=== PATIENT | male | born 1950 | race Caucasian/White ===

== ENCOUNTER 2016-10-29 13:56 | Inpatient (IN) | payer MEDICARE, OTHER ==
[~2016-10-29] VITALS: Ht 172.7 cm; Wt 115.5 kg
--- OUTSIDE RECORDS SUMMARY | 2016-10-29 13:50 | XMS REPORT | Continuity of Care Document ---
Author Author [facility] Organization [facility] Address Unknown Phone Unavailable Care Team Providers Care Bean Sprout Grower Name Role Phone Elijah Marks MD PCP [phone] Insurance Providers Payer Name Policy Number Subscriber Name Relationship Medicare A And B [id number] Epi Goodwingeorge Elizabeth 18 Self / Same As Patient Other1 [id number] BuddyChito Elizabeth 18 Self / Same As Patient Chief Complaint and Reason for Visit Chief Complaint Skin Condition Reason for Visit [id number] Allergic contact dermatitis Problems Medical Problems Problem Onset Date Status Poison crissy dermatitis Unknown Active Allergic contact dermatitis Unknown Active Medications Medication Dose Route Sig Days/Qty Instructions Order Date Discontinued Date Status Prednisone 10 Mg ORAL As Directed 48 Qty Take this medication following this schedule: Six (6) tablets by mouth daily x 2 days, followed by Five (5) tablets by mouth daily x 2 days, followed by Four (4) tablets by mouth daily x 2 days, followed by Three (3) tablets by mouth daily x 1 days, followed by Two (2) tablets by mouth daily x 1 days, followed by One (1) tablet by mouth daily x 1 days 05/18/15 Active Social History No social history. Hospital Discharge Instructions No hospital discharge instructions. Plan of Care Discharge Date 05/18/15 2:25pm Disposition 01 HOME OR SELF-CARE Condition at Discharge Stable Instructions/Education Provided Poison Crissy (ED) Prescriptions See Medications Section Referrals Elijah Marks MD Functional Status No functional status results. Allergies, Adverse Reactions, Alerts Allergen Type Severity Reaction Status Last Updated No Known Drug Allergies Active 05/18/15 Immunizations No immunization records. Vital Signs Acute Vital Signs Vital Response Date/Time Temperature (Fahrenheit) 98.0 Pulse 72 bpm Respirations 18 Height 5 ft 8 in Weight 259 lb Body Mass Index 39.0 kg/m^2 Results Test Source Date Result Interp. Ref. Range Comments Prostate Specific Antigen February 01, 2013 3:33pm 6.5 ng/mL H 0.0-4.5 AUA PSA Best Practice Guidelines: Age-Adjusted PSA Values by Ethnic Group Age Range Asians - Caucasians Americans 40-49 0-2.0 0-2.0 0-2.5 50-59 0-3.0 0-4.0 0-3.5 60-69 0-4.0 0-4.5 0-4.5 70-79 0-5.0 0-5.5 0-6.5 Procedures No known history of procedures. Encounters Encounter Location Date/Time Registered Emergency Room [facility] 05/18/15 12:54pm Recent Diagnosis
[~2016-10-29 13:56] MED LIST changes: -ATOR40TA2 PO; -CHOL100092 PO; -FERR325T36 PO; -LSNP10T PO
--- OUTSIDE RECORDS SUMMARY | 2016-10-29 14:02 | XMS REPORT | Continuity of Care Document ---
Author Author [facility] Organization [facility] Address Unknown Phone Unavailable Care Team Providers Care Translator Deaf Name Role Phone Elijah Marks MD PCP [phone] Insurance Providers Payer Name Policy Number Subscriber Name Relationship Medicare A And B [id number] Epi Goodwingeorge Elizabeth 18 Self / Same As Patient Other1 [id number] BuddyChito Elizabeth 18 Self / Same As Patient Chief Complaint and Reason for Visit Chief Complaint Skin Condition Reason for Visit [id number] Allergic contact dermatitis Problems Medical Problems Problem [...] Encounters Encounter Location Date/Time Registered Emergency Room [facility] 05/18/15 12:54pm Recent Diagnosis
[2016-10-29 14:26] LABS: BILIRUBIN,URINE Negative (Negative); CLARITY,URINE Clear; COLOR,URINE Orange; GLUCOSE, URINE (UA) Negative (Negative); LEUKOCYTE ESTERASE ,URINE Negative (Negative); UROBILINOGEN,URINE 0.2 mg/dL (0.2-1.0)
[2016-10-29 14:27] LABS: URINE CENTRIFUGED VOLUME 12 mL
[2016-10-29 14:30] LABS: MEAN CORPUSCULAR HEMOGLOBIN 30.9 PG (26.0-34.0); MEAN CORPUSCULAR HGB CONC 34.8 g/dL (31.0-37.0); MEAN CORPUSCULAR VOLUME 89 FL (80-100); MEAN PLATELET VOLUME 10.5 FL (6.0-9.5); PLATELET COUNT 118 10^3uL (150-450)
[2016-10-29 14:32] LABS: RBC,URINE 0-2 /HPF
[2016-10-29 14:35] LABS: BAND NEUTROPHILS % 2 % (0-6); EOSINOPHILS % 0 % (0-4); LYMPHOCYTES # 0.5 #; MONOCYTES # 0.3 #; MONOCYTES % 3 % (3-11); RBC MORPH NORMAL (NORMAL); SEGMENTED NEUTROPHILS % 90 % (51-67); TOTAL CELLS COUNTED 100
--- NOTE | 2016-10-29 14:59 | Diagnostic Imaging Report ---
Indication: Shortness breath. Exam: Portable chest at 2:37 PM Findings: The heart size and pulmonary vascularity are normal. The lungs are clear. There are no effusions or pneumothoraces. Impression: Negative chest. Dictated by: Dictated on workstation # [id number]
[2016-10-29] MEDS ORDERED: ALBUTEROL/IPRATROPIUM 3MG-0.5MG/3ML (DUONEB) NEB VIAL INH ONE (15:45)
[2016-10-29] MEDS ORDERED: cefTRIAXone SODIUM 1,000 MG in SODIUM CHLORIDE 50 ML IV ONE (16:35)
[2016-10-29] MEDS ORDERED: ACETAMINOPHEN 500 MG TAB (TYLENOL) PO ONE ×2 (16:40→16:44)
[2016-10-29] MEDS ORDERED: DOCUSATE SODIUM 100 MG (COLACE) CAP PO PRN (16:45)
[2016-10-29] MEDS ORDERED: MAG HYDROX/AL HYDROX/SIMETH 200-200-20/5 ML (MAG-AL PLUS) 30 ML UDC PO PRN (16:45)
[2016-10-29] MEDS ORDERED: PROMETHAZINE HCL INJ 12.5 MG in SODIUM CHLORIDE 25 ML IV PRN (16:45)
[2016-10-29] MEDS ORDERED: DEXTROSE 50% 25 GM/50 ML SYRINGE IV PRN ×2 (16:45→18:00)
[2016-10-29] MEDS ORDERED: DEXTROSE ORAL GEL (GLUTOSE 40%) 15 GM TUBE PO PRN ×2 (16:45→18:00)
[2016-10-29] MEDS ORDERED: ALBUTEROL 0.083% NEB SOLUTION 2.5 MG/3 ML VIAL INH PRN (16:45)
[2016-10-29] MEDS ORDERED: POLYETHYLENE GLYCOL 17 GM (MIRALAX) PACKET PO PRN (16:45)
[2016-10-29] MEDS ORDERED: MAGNESIUM HYDROXIDE 80MG/ML (MILK OF MAGNESIA) 30 ML UDC PO PRN (16:45)
[2016-10-29] MEDS ORDERED: GLUCAGON EMERGENCY 1 MG/KIT IM PRN ×2 (16:45→18:00)
[2016-10-29] MEDS: SODIUM CHLORIDE FLUSH 3 ML SYR IV PRN (16:46)
[2016-10-29] MEDS: [UNRECOGNIZED DRUG - OTHER] PO SCH ×2 (17:00→20:24)
[2016-10-29] MEDS: ENTACAPONE PO SCH ×2 (17:00→20:24)
[2016-10-29] MEDS: CARBIDOPA PO SCH ×2 (17:00→20:24)
[2016-10-29] MEDS: LEVODOPA PO SCH ×2 (17:00→20:24)
[2016-10-29] MEDS ORDERED: ATOR40TA2 PO (17:15)
[2016-10-29 17:37] VITALS: BP 120/96
[2016-10-29] MEDS: AZITHROMYCIN VIAL 500 MG in SODIUM CHLORIDE 250 ML IV SCH (17:45)
[2016-10-29] MEDS: CARVEDILOL 25 MG (COREG) TABLET PO SCH (17:45)
[2016-10-29 17:51] LABS: ALBUMIN 4.6 g/dL (3.4-5.0); ANION GAP 18.5 MEQ/L (3-15); TOTAL PROTEIN 7.3 g/dL (6.4-8.5)
[2016-10-29 17:55] LABS: INFLUENZA VIRUS TYPE A ANTIBOD Negative (NEGATIVE); INFLUENZA VIRUS TYPE B ANTIBOD Negative (NEGATIVE)
[2016-10-29] MEDS ORDERED: IBUPROFEN 600 MG (MOTRIN) TAB PO PRN (18:00)
--- NOTE | 2016-10-29 18:16 | History and Physical (E) ---
History & Physical PCP: Elijah Marks MD CC: Fever, weakness, unable to bear weight. HPI Carlos Alberto Goodwin is a 66 year old male admitted from ED 10/29 where he presented from home with complaint of fever, weakness, and inability bear weight. Onset of fever was reportedly last night, up to 103 at one point. In ED, temp 99.0, RR 22, HR 90's, BP 161/69. SpO2 95% on room air initially though he was tachypneic and wheezy initially. WBC was 10.00. Hgb 12.8. Plt 118. 90% N with 2 % B. Serum chemistry showed low sodium at 128 and AG = 14. CXR was fairly unremarkable. UA consistent with dehydration. He was givne albuterol and NS bolus in ED. Because of fever, there was concern of infection and he did meet SIRS criteria. No antibiotics were given in ED. He was admitted for further management. On arrival to unit, awake, alert, interactive, but appears tired and is quite tremulous. He has Parkinson's tremor at baseline but daughter agrees it is worse than usual at present. Patient provides some history but bulk comes from , daughter. says he had onset of illness yesterday morning with MEMBRENO, elevated temp (103 at home). She gave ibuprofen which seemed to help but the fever would return. He has been chilling as will. His blood pressure has been high at home since this illness started. Went to bed around 2029. remained attentive to his needs through the night. This AM, he needed to go to restroom but he was weak and slipped to floor. couldn't get him up. No head trauma with this slide to floor. called EMS who then got him to chair, checked vitals, then brought him to ED. With this illness, no cough. Seemed short of breath last night. Was also more anxious. Had some mild nausea but no reports of vomiting or diarrhea. Still has some MEMBRENO. No reported similar illness. Despite his chronic illnesses, he has not been hospitalized any time recently. PMH * HLD * Parkinson's disease * Diabetes Mellitus Type II * HTN * anxiety * depression * history of tobacco abuse * falls at home * cognitive decline * Prostate cancer, treated with radiation * CHAIM on CPAP IMMUNIZATIONS Did not get influenza vaccination this season. PSH * Ilene fundoplication * Knee surgery, age 13 * Dental extraction ALLERGIES: Please see list at end of report. HOME MEDICATIONS: Please see list at end of report. FH Mother of complication after surgery for diverticulitis. Had COPD, asthma, CHF, atrial fibrillation. Father had CAD, HTN, HLD. He also had Alzheimer's. SH Lives with and his son in their home in [place]. Retired from [employer]. Quit smoking many years ago. Occasionally drinks beer. No drug use. ROS CONSTITUTION: Weight has been stable. HEENT: No change in vision or hearing. No sores in mouth, sore throat. Has had some pain in back of neck. CV: No chest pain, palpitations. PULM: Per HPI, exam. GI: Per HPI, exam. : No dysuria. No blood in urine. MS: Increased weakness/fatigue. NEURO: increased tremor INTEG: No rashes, lesions, or sores. ENDO: No heat or cold intolerance. No polydipsia or polyuria. HEME/LYMPH: No easy bruising or bleeding. No swollen glands. PSYCH: More lethargic. OBJECTIVE Vital Signs Date Time Temp Pulse Resp B/P Pulse Ox O2 Delivery O2 Flow Rate FiO2 10/29/16 17:37 102.1 92 26 92 Room air 10/29/16 17:37 120/96 GEN: Awake, alert, interactive, but appears unwell. HEENT: EOMI, clear sclerae, moist oral mucosa with coated tongue. Some mild tenderness to posterior neck palpation but no adenopathy, no significant increased pain with [id number] flexion. No tonsillar erythema or exudate. CV: RRR with borderline tachycardia. S1 S2 normal with no murmur LUNGS: CTA B with diminished bases. No R/R/W. ABD: Soft, mildly distended but tolerates exam and no tenderness or guarding. Hyperactive bowel sounds. EXTR: Trace ankle edema. INTEG: No rash. Diaphoretic. Warm, dry, well-perfused. NEURO: Generalized weakness. Mild delirium. Increased tremor in arms, legs. Laboratory Results-14 Days 10/29/16 14:10: Absolute Band Neutrophils 0.2, Alanine Aminotransferase (ALT/SGPT) 31, Albumin 4.6, Albumin/Globulin Ratio 1.703, Alkaline Phosphatase 97, Anion Gap 18.5H, Aspartate Amino Transf (AST/SGOT) 42H, BUN/Creatinine Ratio 17, Band Neutrophils % 2, Basophils # (Auto) , Basophils # (Manual) 0.0, Basophils % ( Manual) 0, Basophils (%) (Auto) , Blood Morphology Comment Normal, Blood Urea Nitrogen 13, Calcium Level 9.3, Calcium/Ionized Calcium Ratio 4.0, Calculated Osmolality 251L, Carbon Dioxide Level 22, Chloride Level 92L, Creatinine 0.77L, Differential Total Cells Counted 100, Eosinophils # 0.0, Eosinophils # (Auto) , Eosinophils % (Manual) 0, Eosinophils (%) (Auto) , Estimat Glomerular Filtration Rate 122.3, Estimated GFR (Non- 101.1, Glucose Level 150H, Hematocrit 36.80L, Hemoglobin 12.8L, Lactic Acid Level 2.1, Lymphocytes # 0.5, Lymphocytes # (Auto) , Lymphocytes % (Manual) 5L, Lymphocytes (%) (Auto) , Mean Corpuscular Hemoglobin 30.9, Mean Corpuscular Hemoglobin Concent 34.8, Mean Corpuscular Volume 89, Mean Platelet Volume 10.5H, Metamyelocytes % 0, Monocytes # 0.3, Monocytes # (Auto) , Monocytes % (Manual) 3, Monocytes (%) ( Auto) , GL-Lle-Q-Type Natriuretic Peptide 814H, Neutrophils # 9.0, Neutrophils # (Auto) , Neutrophils (%) (Auto) , Platelet Count 118L, Potassium Level 4.2, Red Blood Count 4.14L, Red Cell Distribution Width 12.6, Segmented Neutrophils % 90H, Sodium Level 128L, Total Bilirubin 0.8, Total Protein 7.3, White Blood Count 10.00 10/29/16 14:15: Urine Bacteria None seen, Urine Bilirubin Negative, Urine Blood Negative, Urine Clarity Clear, Urine Collection Type Clean catch, Urine Color [place], Urine Glucose (UA) Negative, Urine Ketones TraceH, Urine Leukocyte Esterase Negative, Urine Microscopic RBC 0-2, Urine Mucus 3+H, Urine Nitrite Negative, Urine Protein 2+H, Urine Specific [place] 1.020, Urine Squamous Epithelial Cells 2-5, Urine Urobilinogen 0.2, Urine WBC None seen, Urine pH 7.0, Volume Urine Centrifuged 12 ml 10/29/16 15:05: Influenza Virus Type A Antibody [Pending], Influenza Virus Type B Antibody [ Pending] 1/12/17 15:12: Mycoplasma pneumoniae IgM Antibody [Pending] MICRO 10/29 Blood culture PENDING 10/29 Influenza A/B Negative 10/29 Mycoplasma PENDING IMAGING 10/29/16 CHEST 1 VIEW, AP/PA ONLY* Indication: Shortness breath. Exam: Portable chest at 2:37 PM Findings: The heart size and pulmonary vascularity are normal. The lungs are clear. There are no effusions or pneumothoraces. Impression: Negative chest. ASSESSMENT Carlos Alberto Goodwin is a 66 year old male admitted from ED 10/29 with SIRS and possible sepsis though source was uncertain. He had fever, chills, increased Parkinsonian tremor, and labs were notable WBC 10 with 90% N and 2% bands. He had hyponatremia, generalized weakness. He has several chronic problems. PLAN * SIRS/possible sepsis: Source uncertain. May be viral. Blood culture pending. Repeat CXR after hydration. Empiric ceftriaxone, azithromycin. * Acute Respiratory Distress: Mild, subjective. Oxygen protocol. IS. Albuterol PRN. * Possible Community Acquired Pneumonia: On the basis of fever/chills, subjective dyspnea. Normal admit CXR noted but he is dehydrated. Blood culture pending. Sputum pending sample. Guaifenesin, ceftriaxone, azithromycin. * Dehydration: On the basis of labs, exam. NS bolus in ED. Additional liter maintenance. I&O, daily weight. * Fever: Acetaminophen, ibuprofen. * Anxiety: Aggravated by current illness. Lorazepam PRN. * F/E/N: Diabetic diet. IVF as above. Peripheral IV. * Prophylaxis: Enoxaparin * Code Status: Full * Dispo: Inpatient. Expecting 2-3 day stay. CHRONIC ISSUES * CHAIM: Home CPAP. * HTN: Carvedilol * HLD: Atorvastatin, fish oil * Parkinson's Disease: Carbidopa/levodopa/entacapone, amantadine, pramipexole, primidone Allergies/Home Medications Allergies: Coded Allergies: morphine (Verified Adverse Reaction, Mild, nausea and vomiting, 07/09/16) Reported Home Medications Scheduled Amantadine HCl (Amantadine) 100 MG PO BID (Reported) Aspirin (Aspir 81) 81 MG PO DAILY (Reported) Atorvastatin (Lipitor) 40 MG PO DAILY (Reported) B2/Vit A,C & E/Lut/Zeaxanth/Mn (Icaps Tablet) 1 EACH PO DAILY (Reported) Carbidopa/Levodopa/Entacapone (Stalevo 150 Tablet) 1 EACH PO QID (Reported) Carvedilol (Carvedilol) 25 MG PO BID WITH MEALS (Reported) Cyanocobalamin (Vitamin B-12) (B-12) 1,000 MCG PO DAILY (Reported) Metformin HCl (Metformin HCl) 500 MG PO TIDWM (Reported) Mu-Vits-Min Th/Lycopene/Lutein (Centrum Silver Tablet) 1 EACH PO DAILY (Reported ) [place] 3 Polyunsat Fatty Acids (Fish Oil) 1,000 MG PO DAILY (Reported) Pramipexole Di-HCl (Pramipexole Dihydrochloride) 0.5 MG PO TID (Reported) Primidone (Primidone) 250 MG PO DAILY (Reported) Vitamin B Complex (B Complex) 1 EACH PO DAILY (Reported) Vitamin D3/Menaquinone 7 (D3 + K2 Dots 1,000 Units Tab) 1 EACH PO DAILY ( Reported) Scheduled PRN Naproxen (Naproxen) 500 MG PO BID PRN PRN PAIN Discontinued Medications Atorvastatin (Lipitor) 40 MG PO UD (Reported) Hydrocodone/Acetaminophen ([place] 5mg/325mg) 1-2 TAB PO Q6H PRN PRN PAIN Discontinued Reason: Course completed Lidocaine HCl (Lidoderm 5% Patch) 1 EA TOP DAILY Discontinued Reason: Course completed Copies to: End of Report . ENE LEE MD Oct 29, 2016 16:36
[2016-10-29] MEDS: PRAMIPEXOLE 0.5 MG PO SCH (18:23)
[2016-10-29 19:43] VITALS: BP 115/58
[2016-10-29] MEDS: guaiFENesin ER 600 MG (MUCINEX) TAB PO SCH (20:09)
[2016-10-29] MEDS: AMANTADINE 100 MG (SYMMETREL) CAP PO SCH (20:09)
[2016-10-29] MEDS: PRIMIDONE 50 MG PO SCH (20:10)
[2016-10-29] MEDS: INSULIN LISPRO 1 UNIT/0.01 ML (HUMALOG) DOSE SC SCH (20:48)
[2016-10-29] MEDS ORDERED: HOME MEDICATION PO ONE ×2 (21:00)
[2016-10-29] MEDS ORDERED: NON-FORMULARY MEDICATION 1 EA EA (Amantadine HCl (Amantadine) 100 MG) PO SCH (21:00)
[2016-10-29 23:59] VITALS: BP 125/67
[2016-10-30 04:00] VITALS: BP 148/60
[2016-10-30] MEDS: LORazepam 2 MG/ML (ATIVAN) 1 ML VIAL IV PRN ×2 (04:57→21:23)
[2016-10-30 06:13] LABS: MEAN CORPUSCULAR HGB CONC 35.3 g/dL (31.0-37.0); MEAN CORPUSCULAR VOLUME 90 FL (80-100); MEAN PLATELET VOLUME 10.3 FL (6.0-9.5); PLATELET COUNT 101 10^3uL (150-450); WHITE BLOOD COUNT 6.16 10^3uL (4.0-11.0)
[2016-10-30 06:19] LABS: MEAN CORPUSCULAR HEMOGLOBIN 31.7 PG (26.0-34.0)
[2016-10-30 06:24] LABS: BAND NEUTROPHILS % 2 % (0-6); EOSINOPHILS % 0 % (0-4); LYMPHOCYTES # 0.8 #; MONOCYTES # 0.1 #; MONOCYTES % 2 % (3-11); RBC MORPH NORMAL (NORMAL); SEGMENTED NEUTROPHILS % 83 % (51-67); TOTAL CELLS COUNTED 100
--- NOTE | 2016-10-30 06:29 | Diagnostic Imaging Report ---
Indication: Shortness of breath PA and lateral chest Heart size and pulmonary vascular normal. Lungs are clear. There are no effusions or pneumothoraces. Impression: Negative chest Dictated by: Dictated on workstation # [id number]
[2016-10-30 06:56] LABS: ANION GAP 13.9 MEQ/L (3-15); PHOSPHORUS 2.6 mg/dL (2.4-4.9)
[2016-10-30] MEDS: INSULIN LISPRO 1 UNIT/0.01 ML (HUMALOG) DOSE SC SCH ×4 (07:07→21:00)
[2016-10-30] MEDS: MULTIVITAMIN W/MINERALS (THERAGRAN M) TABLET PO SCH (07:37)
[2016-10-30] MEDS: CARVEDILOL 25 MG (COREG) TABLET PO SCH ×2 (07:37→18:24)
[2016-10-30] MEDS: PRAMIPEXOLE 0.5 MG PO SCH ×3 (07:38→18:24)
[2016-10-30] MEDS: AMANTADINE 100 MG (SYMMETREL) CAP PO SCH ×2 (07:38→20:14)
[2016-10-30] MEDS: HOME MEDICATION PO SCH ×5 (07:42→20:05)
[2016-10-30] MEDS: ASPIRIN 81 MG CHEW (CHILDREN'S ASA) PO SCH (08:16)
[2016-10-30] MEDS: CYANOCOBALAMIN 1000 MCG (VITAMIN B-12) TABLET PO SCH (08:16)
[2016-10-30] MEDS: ATORVASTATIN 10 MG (LIPITOR) TABLET PO SCH (08:17)
[2016-10-30] MEDS: guaiFENesin ER 600 MG (MUCINEX) TAB PO SCH ×2 (08:17→20:05)
[2016-10-30] MEDS: ENOXAPARIN 40 MG/0.4 ML (LOVENOX) SYR SC SCH (08:17)
[2016-10-30] MEDS: OMEGA-3 ACID ETHYL ESTERS 1 GM (LOVAZA) CAPSULE PO SCH (08:17)
[2016-10-30 08:18] VITALS: BP 161/62
--- NOTE | 2016-10-30 08:55 | Progress Note (E) ---
Progress Note SUBJECTIVE Overnight, no major issues reported. Still having fever, Tmax 102.2 19:43 yesterday. Noted 100.4 this AM at 0400. BP a bit elevated this AM. Received lorazepam for tremor. Received ibuprofen for fever. WBC this AM remains normal, 6.16. 83% N, 2% B. Na still low at 128. Cr normal. Repeat CXR this AM is again negative for evidence of pneumonia. No blood culture results to guide therapy. Suspect viral illness. On exam he is much more awake, alert, interactive than on admit. Still diaphoretic. Discussed findings, plan of care. OBJECTIVE Vital Signs Date Time Temp Pulse Resp B/P Pulse Ox O2 Delivery O2 Flow Rate FiO2 10/30/16 08:18 98.0 80 18 161/62 94 Room air I & O 10/29/16 10/30/16 Cumulative From/Thru 18:59 06:59 10/29/16 13:58 - 10/30/16 06:06 Intake Total 350 ml 350 ml Output Total 700 ml 700 ml Balance -350 ml -350 ml GEN: Awake, alert, interactive, appears more alert. HEENT: EOMI, clear sclerae, moist oral mucosa with coated tongue. 10/29: Some mild tenderness to posterior neck palpation but no adenopathy, no significant increased pain with [id number] flexion. No tonsillar erythema or exudate. CV: RRR S1 S2 normal with no murmur LUNGS: CTA B with diminished bases. No R/R/W. ABD: Soft, mildly distended but tolerates exam and no tenderness or guarding. Hyperactive bowel sounds. EXTR: Trace ankle edema. INTEG: No rash. Diaphoretic still. Warm, dry, well-perfused. NEURO: Generalized weakness. Mild delirium has resolved. Tremor in arms and legs improved. Lab-Past 14 Days, 35 Results 10/29/16 14:10: Absolute Band Neutrophils 0.2, Alanine Aminotransferase (ALT/SGPT) 31, Albumin 4.6, Albumin/Globulin Ratio 1.703, Alkaline Phosphatase 97, Anion Gap 18.5H, Aspartate Amino Transf (AST/SGOT) 42H, BUN/Creatinine Ratio 17, Band Neutrophils % 2, Basophils # (Auto) , Basophils # (Manual) 0.0, Basophils % ( Manual) 0, Basophils (%) (Auto) , Blood Morphology Comment Normal, Blood Urea Nitrogen 13, Calcium Level 9.3, Calcium/Ionized Calcium Ratio 4.0, Calculated Osmolality 251L, Carbon Dioxide Level 22, Chloride Level 92L, Creatinine 0.77L, Differential Total Cells Counted 100, Eosinophils # 0.0, Eosinophils # (Auto) , Eosinophils % (Manual) 0, Eosinophils (%) (Auto) , Estimat Glomerular Filtration Rate 122.3, Estimated GFR (Non- 101.1, Glucose Level 150H, Hematocrit 36.80L, Hemoglobin 12.8L, Lactic Acid Level 2.1, Lymphocytes # 0.5, Lymphocytes # (Auto) , Lymphocytes % (Manual) 5L, Lymphocytes (%) (Auto) , Mean Corpuscular Hemoglobin 30.9, Mean Corpuscular Hemoglobin Concent 34.8, Mean Corpuscular Volume 89, Mean Platelet Volume 10.5H, Metamyelocytes % 0, Monocytes # 0.3, Monocytes # (Auto) , Monocytes % (Manual) 3, Monocytes (%) ( Auto) , PY-Vjx-K-Type Natriuretic Peptide 814H, Neutrophils # 9.0, Neutrophils # (Auto) , Neutrophils (%) (Auto) , Platelet Count 118L, Potassium Level 4.2, Red Blood Count 4.14L, Red Cell Distribution Width 12.6, Segmented Neutrophils % 90H, Sodium Level 128L, Total Bilirubin 0.8, Total Protein 7.3, White Blood Count 10.00 10/29/16 14:15: Urine Bacteria None seen, Urine Bilirubin Negative, Urine Blood Negative, Urine Clarity Clear, Urine Collection Type Clean catch, Urine Color [place], Urine Glucose (UA) Negative, Urine Ketones TraceH, Urine Leukocyte Esterase Negative, Urine Microscopic RBC 0-2, Urine Mucus 3+H, Urine Nitrite Negative, Urine Protein 2+H, Urine Specific [place] 1.020, Urine Squamous Epithelial Cells 2-5, Urine Urobilinogen 0.2, Urine WBC None seen, Urine pH 7.0, Volume Urine Centrifuged 12 ml 10/29/16 15:05: Influenza Virus Type A Antibody Negative, Influenza Virus Type B Antibody Negative 10/29/16 15:12: Mycoplasma pneumoniae IgM Antibody [Pending] 10/30/16 05:30: Absolute Band Neutrophils 0.1, Albumin 4.0, Anion Gap 13.9, Band Neutrophils % 2 , Basophils # (Auto) , Basophils # (Manual) 0.0, Basophils % (Manual) 0, Basophils (%) (Auto) , Blood Morphology Comment Normal, Blood Urea Nitrogen 13, Calcium Level 8.5L, Carbon Dioxide Level 24, Chloride Level 94L, Creatinine 0.73L, Differential Total Cells Counted 100, Eosinophils # 0.0, Eosinophils # ( Auto) , Eosinophils % (Manual) 0, Eosinophils (%) (Auto) , Estimat Glomerular Filtration Rate 130.1, Estimated GFR (Non- 107.5, Glucose Level 166H, Hematocrit 34.00L, Hemoglobin 12.0L, Lymphocytes # 0.8, Lymphocytes # ( Auto) , Lymphocytes % (Manual) 13L, Lymphocytes (%) (Auto) , Mean Corpuscular Hemoglobin 31.7, Mean Corpuscular Hemoglobin Concent 35.3, Mean Corpuscular Volume 90, Mean Platelet Volume 10.3H, Metamyelocytes % 0, Monocytes # 0.1, Monocytes # (Auto) , Monocytes % (Manual) 2L, Monocytes (%) (Auto) , Neutrophils # 5.1, Neutrophils # (Auto) , Neutrophils (%) (Auto) , Phosphorus Level 2.6, Platelet Count 101L, Polychromasia , Potassium Level 3.9, Red Blood Count 3.79L, Red Cell Distribution Width 13.0, Segmented Neutrophils % 83H, Sodium Level 128L, White Blood Count 6.16 MICRO 10/30 Resp PCR Panel PENDING 10/29 Blood culture PENDING 10/29 Influenza A/B Negative 10/29 Mycoplasma PENDING IMAGING 10/30/16 CHEST PA/LAT (2 VIEW)* Indication: Shortness of breath PA and lateral chest Heart size and pulmonary vascular normal. Lungs are clear. There are no effusions or pneumothoraces. Impression: Negative chest 10/29/16 CHEST 1 VIEW, AP/PA ONLY* Indication: Shortness breath. Exam: Portable chest at 2:37 PM Findings: The heart size and pulmonary vascularity are normal. The lungs are clear. There are no effusions or pneumothoraces. Impression: Negative chest. ASSESSMENT Carlos Alberto Goodwin is a 66 year old male admitted from ED 10/29 with SIRS and possible sepsis though source was uncertain. He had fever, chills, increased Parkinsonian tremor, and labs were notable WBC 10 with 90% N and 2% bands. He had hyponatremia, generalized weakness. He has several chronic problems. PLAN * SIRS/possible sepsis: Source uncertain. May be viral. Blood culture pending. Repeat CXR after hydration was negative. Empiric ceftriaxone, azithromycin. * Acute Respiratory Distress: Resolved. Mild on admit, subjective. Oxygen protocol. IS. Albuterol PRN. * Viral Syndrome: Tentative diagnosis for fever/chills and malaise. Considered pneumonia but imaging makes this much less likely. Check respiratory PCR panel. Empiric antibiotics as above pending blood culture result. * Dehydration: On the basis of labs, exam. NS bolus in ED. Additional liter maintenance. I&O, daily weight. * Fever: Acetaminophen, ibuprofen. * Anxiety: Aggravated by current illness. Lorazepam PRN. * Constipation: Encourage use of PRN bowel regimen. * F/E/N: Diabetic diet. IVF as above. Peripheral IV. * Prophylaxis: Enoxaparin * Code Status: Full * Dispo: Inpatient. Expecting 2-3 day stay. CHRONIC ISSUES * CHAIM: Home CPAP. * HTN: Carvedilol * HLD: Atorvastatin, fish oil * Parkinson's Disease: Carbidopa/levodopa/entacapone, amantadine, pramipexole, primidone ENE LEE MD Oct 30, 2016 08:46
[2016-10-30] MEDS ORDERED: NON-FORMULARY MEDICATION 1 EA EA (Aspirin (Aspir 81) 81 MG) PO SCH (09:00)
[2016-10-30] MEDS ORDERED: [UNRECOGNIZED DRUG - OTHER] PO SCH (09:00)
[2016-10-30] MEDS ORDERED: MU VITS MIN TH PO SCH (09:00)
[2016-10-30] MEDS ORDERED: PRIMIDONE 250 MG PO SCH (09:00)
[2016-10-30] MEDS ORDERED: LYCOPENE PO SCH (09:00)
[2016-10-30] MEDS ORDERED: LUTEIN PO SCH (09:00)
[2016-10-30] MEDS ORDERED: NON-FORMULARY MEDICATION 1 EA EA (Omega 3 Polyunsat Fatty Acids (Fish Oil) 1,000 MG) PO SCH (09:00)
--- NOTE | 2016-10-30 10:01 | OT Therapy Evaluation (E) ---
POC Plan of Care Problems Identified: Activity Tolerance, ADLs, Balance, Lt UE Strength, Rt UE Strength, Safety Awareness Plan: Evaluation-OT, ADL/Self Care Management, Therapy Exercises, Therapy Activities, Pt/Family/Staff Education Frequency of OT: Five times weekly Duration of OT: Other (5 days ) Therapy to Include: ADL training, Balance with ADLs, Pt/family education, Therapeutic activities, UE strengthing Discharge Recommendations: Caregiver support Pt would benefit from skilled occupational therapy services to improve independence and with self care with increased safety awareness for return to prior level of function. Additionally to provide family with strategies during functional mobility tasks. Pt. Aware of Dx and Prognosis: Yes Pt. Aware of Risk & Benefit: Yes Goals: Discussed with patient, Discussed with family Short Term Goals STG Time Frame: 3 Days Will Perform Grooming: CGA Will Dress Lower Extremity: With Setup/SBA Will do Bathing: With Min Assistance Will do Toileting: CGA STG #1 Pt will participate in 15 min of ther-ex with 4 or less rest breaks. Pizza Baker Goals LTG Time Frame: 5 Days Will Dress Upper Extremity: Independently Will Dress Lower Extremity: Independently Will do Tub/Shower Transfer: Independently Will Bathe Self: With Setup/SBA Will do Toilet Transfers: Independently Will do Toilieting: Independently Inital Evaluation/General Service Date/Time 10/30/16, 10:01 Primary Diagnosis: (1) Fever ICD Code: R50.9 Treatment Diagnosis: (1) Weakness ICD Code: R53.1 Onset Date: 10/29/16 Start of Care Date: Oct 30, 2016 Precaution/Isolation: Standard Precautions Fall Level: High Risk 51 or greater Resuscitation Status: Full Code Reason for Referral: Evaluation and Treat History Comment PMH of HLD, Parkinson's DM II, HTN, anxiety, depression, history of tobacco abuse, falls at home, cognitive decline. Pain Level: 0 Oxygen Needed: Room air O2 liters/minute: 0 Rehabilitation Potential: Good Potential Based On Patient's prior level of function and motivation to return home. Living Status Prior to Admit: With Spouse Pt reports needing occasional assistance with self care tasks, but able to independently majority of time. helps with drying back after shower and sometime help with shirt and pants when he is having increased tremor shaking.Pt reports he has been feeling week the last four days. and share responsibilities of IADL tasks of cooking and cleaning. Pt reports exercising every three days. Mostly use microwave for meals. Plans Following Discharge: Return Home Support Persons: Entry Into Home: Strairs with Railing (Ledge to hold onto. Pt has a one-level home with basement.) Shower and Tub Type: Walk in/curtain-grab bars Toilet Type: Raised Comment Pt reports he does not use an assistive device for functional mobility. reports she thinks this would be a good idea for him to start using. Current Function Assessment Mental Status Patient Orientation: Person Mental Status: Alert Cognition Attention: Intact Memory: Intact Safety/Judgement: Impaired Visual/Perceptual Skills Hearing: Intact Hand Dominance Hand Dominance: Right ROM/Strength Range of Motion : ROM: WNL Strength Comment BUE 4-/5 Endurance Activity Endurance: Becomes SOB, Fair Bed Mobility/Transfers Bed Mobility: Moderate assist, Of 2 Sit to Stand: SBA Sitting Balance: SBA Dressing Dressing: Minimum assist Bathing Shower/Bench Transfer Ability: Minimum assist Toileting Toilet Hygiene: Minimum Assist Additional Assessment/Comments The present presents with decreased strength, difficulty maintaining balance during self care tasks, decreased safety awareness and decreased ability to complete self care tasks. Pt reports with comorbidities affecting occupational performance and requiring minimal safety cueing and moderate assistance during evaluation, demonstrating a moderate complexity level. CPT/G Codes Time In: 8:50 Time Out: 9:15 Total Minutes: 25 (11/11 eval) CPT Codes: 12221 Eval 21-30 mins CECILY PATEL OT Oct 30, 2016 10:01
[2016-10-30] MEDS ORDERED: CHOL100092 PO (11:19)
[2016-10-30] MEDS ORDERED: FERR325T36 PO (11:20)
[2016-10-30 11:27] VITALS: BP 126/72
[2016-10-30 15:38] VITALS: BP 153/78
[2016-10-30] MEDS: cefTRIAXone SODIUM 1,000 MG in SODIUM CHLORIDE 50 ML IV SCH (16:17)
--- NOTE | 2016-10-30 16:36 | Physical Therapy Evaluation(E) ---
Plan of Care STG: Plan-Treatment Functional: Trans. Safe w/ AD STG Time Frame: 1 Day LTG Time Frame: 3 Days Goals Discussed/Agreed: Yes Plan: Gait & Transfer Training, Neuro Re-Education, Progressive Ambulation, Transfer Training, Therapy Excercise Discharge Recommendations: Caregiver support Aware of Dx and Prognosis: Yes Aware of Risk & Benefit: Yes To be Seen: Daily Wednesday-Wednesday Initial Evaluation Service Date/Time 10/30/16, 16:29 Primary Diagnosis: (1) Fever ICD Code: R50.9 Treatment Diagnosis: (1) HTN (hypertension) (2) Fever ICD Code: R50.9 (3) SIRS (systemic inflammatory response syndrome) ICD Code: R65.10 Onset Date: 10/29/2016 Start of Care Date: Oct 30, 2016 Resuscitation Status: Full Code Precaution/Isolation: Standard Precautions Fall Level: High Risk 51 or greater (Patient has pressure alarm. ) Initial Assessment Reason for Rehab: Increase Mobility, Increase Strength, Increase Balance, Increase AROM, Increase Transfers, Increase Endurance Medical History: Anxiety, DM, Depression, Parkinsons, Other (hx of falls) Pain Location/Comment Patient denies pain, but reports weakness Prior Level of Function The patient lives at home with his . She would assist him at times. Patient reports he is noticing on/off times with his Parkinson's medications are getting closer together. He ambulates without AD at home, independent for most ADLs. Rehabilitation Potential: Good Comment Patient has a good support system with his . Assistive Device: FWW Distance Walked in Feet 110 feet with FWW good step length in straight pathway verbal cues for step length when turning. Assist: Min Assist/Contact Guard Gait Description: Short Step Length (with turns) ROM/Strength Hip Mobility: Right Hip Strength: 4+ Left Hip Strength: 4+ Knee Flexion Mobility: Right Knee Flexion Strength: 4 Left Knee Flexion Strength: 4 Knee Extension Mobility: Right Knee Extension Strength: 5 Left Knee Extension Strength: 5 Ankle Mobility: Right Ankle Strength: 4+ Left Ankle Strength: 4+ Assessment/Goals Initial Transfer Assessment Rolling: Not Assessed/NA Sit-Supine: Not Assessed/NA Sitting Edge of Bed: Supervision or setup (seated in chair ) Supine-Sit: Not Assessed/NA Sit-Stand from Bed: Contact Guard Assist Stand-Sit: Contact Guard Assist Ambulation: Contact Guard Assist Distance Walked in Feet 110 feet with FWW Transfer Short Term Goals Rolling: Supervision or setup Sit-Supine: Supervision or setup Sitting Edge of Bed: Supervision or setup Supine-Sit: Supervision or setup Sit-Stand from bed: Supervision or setup Stand-Sit: Supervision or setup Ambulation: Contact Guard Assist Distance to Walk in Feet 50 feet without AD, 300 feet with FWW. Transfer Assistant Printer Floor Covering Goals Rolling: Modified [place] Sit-Supine: Modified [place] Sitting Edge of Bed: Not Assessed/NA Sit-Stand from bed: Modified [place] Stand-Sit: Modified [place] Ambulation: Modified [place] Distance to Walk in Feet 100 feet without AD. Coding Time In: 1352 Time Out: 1413 Total Minutes: 21 Charges: 51353 Eval< 20 min SYDNIE MARIN PT Oct 30, 2016 16:36
[2016-10-30] MEDS: AZITHROMYCIN VIAL 500 MG in SODIUM CHLORIDE 250 ML IV SCH (16:40)
[2016-10-30 19:27] VITALS: BP 162/72
[2016-10-30] MEDS: CALCIUM CARBONATE CHEWABLE 300 MG (TUMS) TABLET PO PRN (19:28)
[2016-10-30] MEDS: ACETAMINOPHEN 325 MG TAB (TYLENOL) PO PRN (19:29)
[2016-10-30] MEDS: PRIMIDONE 50 MG PO SCH (20:05)
--- NOTE | 2016-10-30 20:55 | Progress Note-A/P (E) ---
Progress Note Subjective: Patient care assumed. Chart reviewed. Objective: Current Medications Atorvastatin Calcium 40 mg DAILY PO Cyanocobalamin 1,000 mcg DAILY PO Pramipexole 0.5 mg TID PO Acetaminophen 650 mg Q6H PRN PO Calcium Carbonate 300 mg Q8H PRN PO Al Hydrox/Mg Hydrox/Simethicone 30 ml Q6H PRN PO Ondansetron HCl 4 mg Q6H PRN PO Promethazine Q6H PRN IV Magnesium Hydroxide 30 ml DAILY PRN PO Polyethylene Glycol 17 gm DAILY PRN PO Docusate Sodium 100 mg BID PRN PO Enoxaparin Sodium 40 mg DAILY SC Dextrose 15 gm Q15M PRN PO Dextrose PRN IV Glucagon 1 mg PRN IM Albuterol Sulfate 2.5 mg Q4H PRN INH Guaifenesin 1,200 mg BID PO Ceftriaxone 1000 mg DAILY@1600 IV Azithromycin DAILY@1700 IV Primidone 250 mg HS PO Knbce-2-Hmga Ethyl Esters 1 gm DAILY PO Multivitamins DAILY@0800 PO Aspirin 81 mg DAILY@0900 PO Amantadine HCl 100 mg BID PO Insulin Human Lispro QIDACHS SC Ibuprofen 600 mg Q6H PRN PO Lorazepam 0.5 mg Q6H PRN IV Non-Formulary Medication 1 dose 0730,1130,15,19 PO Vital Signs Date Time Temp Pulse Resp B/P Pulse Ox O2 Delivery O2 Flow Rate FiO2 10/30/16 19:27 100.7 82 20 162/72 97 Room air I & O Past 24 hrs 10/30/16 07:00 Intake Total 350 ml Output Total 700 ml Balance -350 ml Intake Oral 350 ml Output Urine Total 700 ml Past 24 hour Lab Results 10/30/16 05:30 Laboratory Results Past 24 Hrs 10/30/16 05:30: Absolute Band Neutrophils 0.1, Albumin 4.0, Anion Gap 13.9, Band Neutrophils % 2 , Basophils # (Auto) , Basophils # (Manual) 0.0, Basophils % (Manual) 0, Basophils (%) (Auto) , Blood Morphology Comment Normal, Blood Urea Nitrogen 13, Calcium Level 8.5, Carbon Dioxide Level 24, Chloride Level 94, Creatinine 0.73, Differential Total Cells Counted 100, Eosinophils # 0.0, Eosinophils # (Auto) , Eosinophils % (Manual) 0, Eosinophils (%) (Auto) , Estimat Glomerular Filtration Rate 130.1, Estimated GFR (Non- 107.5, Glucose Level 166, Hematocrit 34.00, Hemoglobin 12.0, Lymphocytes # 0.8, Lymphocytes # (Auto) , Lymphocytes % (Manual) 13, Lymphocytes (%) (Auto) , Mean Corpuscular Hemoglobin 31.7, Mean Corpuscular Hemoglobin Concent 35.3, Mean Corpuscular Volume 90, Mean Platelet Volume 10.3, Metamyelocytes % 0, Monocytes # 0.1, Monocytes # (Auto) , Monocytes % (Manual) 2, Monocytes (%) (Auto) , Neutrophils # 5.1, Neutrophils # (Auto) , Neutrophils (%) (Auto) , Phosphorus Level 2.6, Platelet Count 101, Polychromasia , Potassium Level 3.9, Red Blood Count 3.79, Red Cell Distribution Width 13.0, Segmented Neutrophils % 83, Sodium Level 128, White Blood Count 6.16 10/30/16 08:56: Adenovirus (PCR) Negative, Bordetella parapertussis DNA (PCR) Negative, Chlamydophila pneumoniae (PCR) Negative, Coronavirus Type 229E (PCR) Negative, Coronavirus Type HKU1 (PCR) Negative, Coronavirus Type NL63 (PCR) Negative, Coronavirus Type OC43 (PCR) Negative, Enterovirus/Rhinovirus (PCR) Negative, Human Metapneumovirus (PCR) Negative, Influenza Type A (H1) (PCR) Negative, Influenza Virus Type B (PCR) Negative, Mycoplasma pneumoniae (PCR) Negative, Parainfluenza Type 1 (PCR) Negative, Parainfluenza Type 2 (PCR) Negative, Parainfluenza Type 3 (PCR) Negative, Parainfluenza Type 4 (PCR) Negative, Respiratory Syncytial Virus (PCR) Negative 10/30/16 10:00: Urine Random Creatinine 231, Urine Random Sodium 88 10/30/16 10:50: Lab Scanned Report REFERENCE LABS Imaging Results 10.29.16 CXR Impression: Negative chest. 10.29.16 CXR Impression: Negative chest Assessment/Plan SIRS Met with fever, tachycardia, and tachypnea. Only intermittent fevers persist. Suspicious of a viral cause. BC's pending. CXR negative. Providing empiric ceftriaxone and azithromycin. Dyspnea On admission. Improving. Will monitor for supplemental oxygen needs. Continue IS and prn albuterol. Suspected viral syndrome Given fevers, chills, and malaise. Imaging negative as noted above. Viral PCR negative. Mycoplasma still pending. Continue abx noted above. Anxiety Continue lorazepam prn. Constipation Encourage use of bowel regimen. CHAIM Continue home CPAP. HTN Continue home carvedilol. DLD Continue home atorvastatin and fish oil. Parkinson disease Continue home carbidopa/levodopa/entacapone/amantidine, pramipexole, and primidone. Type II DM On metformin at home, continue here. FEN Fluids provided on admission. I/o's and daily weights. Mild hyponatremia noted. Continue to monitor. Diabetic diet as note. DVT proph Lovenox, SCD's and CISCO hose. Code status Full code. Dispo Inpatient for above issues. Monitor cultures and PCR for mycoplasma. If both are negative, can de-escalate abx and monitor for improvement in preparation for d/c to home. HORTENCIA BILLS MD Oct 30, 2016 20:55
[2016-10-30] MEDS: SODIUM CHLORIDE FLUSH 10 ML SYR IV PRN ×2 (21:26→21:52)
[2016-10-30 23:47] VITALS: BP 164/85
[2016-10-31 04:19] VITALS: BP 169/87
[2016-10-31] MEDS: CALCIUM CARBONATE CHEWABLE 300 MG (TUMS) TABLET PO PRN (05:47)
[2016-10-31] MEDS: HOME MEDICATION PO SCH ×4 (06:33→18:05)
[2016-10-31] MEDS: INSULIN LISPRO 1 UNIT/0.01 ML (HUMALOG) DOSE SC SCH ×4 (06:39→21:00)
[2016-10-31 06:54] LABS: BASOPHILS % (AUTO) 0 % (0-2); EOSINOPHILS # (AUTO) 0.1 10^3uL; EOSINOPHILS % (AUTO) 1 % (0-4); LYMPHOCYTES # (AUTO) 0.5 X10^3; MEAN CORPUSCULAR HEMOGLOBIN 30.9 PG (26.0-34.0); MEAN CORPUSCULAR HGB CONC 35.1 g/dL (31.0-37.0); MEAN CORPUSCULAR VOLUME 88 FL (80-100); MEAN PLATELET VOLUME 10.5 FL (6.0-9.5); MONOCYTES # (AUTO) 0.6 X10^3; MONOCYTES % (AUTO) 11 % (3-11); NEUTROPHILS # (AUTO) 4.3 X10^3; NEUTROPHILS % (AUTO) 77 % (51-67); PLATELET COUNT 106 10^3uL (150-450); WHITE BLOOD COUNT 5.51 10^3uL (4.0-11.0)
[2016-10-31 07:10] LABS: ALBUMIN 4.1 g/dL (3.4-5.0); ANION GAP 13.7 MEQ/L (3-15); MAGNESIUM* 1.8 mg/dL (1.6-2.3); PHOSPHORUS 2.8 mg/dL (2.4-4.9)
[2016-10-31] MEDS: ONDANSETRON 4 MG (ZOFRAN) ORAL DISSOLVE TAB PO PRN (07:36)
[2016-10-31 08:10] VITALS: BP 171/85
[2016-10-31] MEDS: CARVEDILOL 25 MG (COREG) TABLET PO SCH ×2 (08:16→18:04)
[2016-10-31] MEDS: ASPIRIN 81 MG CHEW (CHILDREN'S ASA) PO SCH (08:16)
[2016-10-31] MEDS: ACETAMINOPHEN 325 MG TAB (TYLENOL) PO PRN (08:16)
[2016-10-31] MEDS: PRAMIPEXOLE 0.5 MG PO SCH ×3 (08:17→18:04)
[2016-10-31] MEDS: AMANTADINE 100 MG (SYMMETREL) CAP PO SCH ×2 (08:17→21:11)
[2016-10-31] MEDS: ENOXAPARIN 40 MG/0.4 ML (LOVENOX) SYR SC SCH (08:17)
[2016-10-31] MEDS: MULTIVITAMIN W/MINERALS (THERAGRAN M) TABLET PO SCH (08:17)
[2016-10-31] MEDS: guaiFENesin ER 600 MG (MUCINEX) TAB PO SCH ×2 (08:17→21:11)
[2016-10-31] MEDS: ATORVASTATIN 10 MG (LIPITOR) TABLET PO SCH (08:17)
[2016-10-31] MEDS: CYANOCOBALAMIN 1000 MCG (VITAMIN B-12) TABLET PO SCH (08:17)
[2016-10-31] MEDS: OMEGA-3 ACID ETHYL ESTERS 1 GM (LOVAZA) CAPSULE PO SCH (08:17)
--- NOTE | 2016-10-31 08:35 | Progress Note-A/P (E) ---
Progress Note Subjective: T max to 101.1 over night. The patient reports he is feeling somewhat better. He reports feeling poorly with his fevers. Discussed his care and plan. Questions answered. Patient and verbalized understanding. Objective: Current Medications Atorvastatin Calcium 40 mg DAILY PO Cyanocobalamin 1,000 mcg DAILY PO Pramipexole 0.5 mg TID PO Acetaminophen 650 mg Q6H PRN PO Calcium Carbonate 300 mg Q8H PRN PO Al Hydrox/Mg Hydrox/Simethicone 30 ml Q6H PRN PO Ondansetron HCl 4 mg Q6H PRN PO Promethazine Q6H PRN IV Magnesium Hydroxide 30 ml DAILY PRN PO Polyethylene Glycol 17 gm DAILY PRN PO Docusate Sodium 100 mg BID PRN PO Enoxaparin Sodium 40 mg DAILY SC Dextrose 15 gm Q15M PRN PO Dextrose PRN IV Glucagon 1 mg PRN IM Albuterol Sulfate 2.5 mg Q4H PRN INH Guaifenesin 1,200 mg BID PO Ceftriaxone 1000 mg DAILY@1600 IV Azithromycin DAILY@1700 IV Primidone 250 mg HS PO Lnntd-4-Tllz Ethyl Esters 1 gm DAILY PO Multivitamins DAILY@0800 PO Aspirin 81 mg DAILY@0900 PO Amantadine HCl 100 mg BID PO Insulin Human Lispro QIDACHS SC Ibuprofen 600 mg Q6H PRN PO Lorazepam 0.5 mg Q6H PRN IV Non-Formulary Medication 1 dose 0730,1130,15,19 PO Vital Signs Date Time Temp Pulse Resp B/P Pulse Ox O2 Delivery O2 Flow Rate FiO2 10/31/16 08:10 101.1 84 18 171/85 95 Room air I & O Past 24 hrs 10/31/16 06:59 Intake Total 1839 ml Output Total 2575 ml Balance -736 ml Intake Oral 1451 ml IV Total 388 ml Output Urine Total 2575 ml # Bowel Movements 3 General--Awake and alert. No distress. HEENT--Normocephalic. MMM in oral cavity. Lungs--CTA B. NLR's. Heart--RRR. No murmurs appreciated. Abdomen--NBS. S/ND/NTTP. Extremities--No edema noted to lower extremities. Neuro--Fine tremor noted. Past 24 hour Lab Results 10/31/16 06:29 Laboratory Results Past 24 Hrs 10/30/16 08:56: Adenovirus (PCR) Negative, Bordetella parapertussis DNA (PCR) Negative, Chlamydophila pneumoniae (PCR) Negative, Coronavirus Type 229E (PCR) Negative, Coronavirus Type HKU1 (PCR) Negative, Coronavirus Type NL63 (PCR) Negative, Coronavirus Type OC43 (PCR) Negative, Enterovirus/Rhinovirus (PCR) Negative, Human Metapneumovirus (PCR) Negative, Influenza Type A (H1) (PCR) Negative, Influenza Virus Type B (PCR) Negative, Mycoplasma pneumoniae (PCR) Negative, Parainfluenza Type 1 (PCR) Negative, Parainfluenza Type 2 (PCR) Negative, Parainfluenza Type 3 (PCR) Negative, Parainfluenza Type 4 (PCR) Negative, Respiratory Syncytial Virus (PCR) Negative 10/30/16 10:00: Urine Random Creatinine 231, Urine Random Sodium 88 10/30/16 10:50: Lab Scanned Report REFERENCE LABS 10/31/16 06:29: Albumin 4.1, Anion Gap 13.7, Basophils # (Auto) 0.0, Basophils (%) (Auto) 0, Blood Urea Nitrogen 10, Calcium Level 8.7, Carbon Dioxide Level 24, Chloride Level 95, Creatinine 0.61, Eosinophils # (Auto) 0.1, Eosinophils (%) (Auto) 1, Estimat Glomerular Filtration Rate 160.0, Estimated GFR (Non- 132.3, Glucose Level 151, Hematocrit 34.80, Hemoglobin 12.2, Hemoglobin A1c 7.1 , Lymphocytes # (Auto) 0.5, Lymphocytes (%) (Auto) 10, Magnesium Level 1.8, Mean Corpuscular Hemoglobin 30.9, Mean Corpuscular Hemoglobin Concent 35.1, Mean Corpuscular Volume 88, Mean Platelet Volume 10.5, Monocytes # (Auto) 0.6, Monocytes (%) (Auto) 11, Neutrophils # (Auto) 4.3, Neutrophils (%) (Auto) 77, Phosphorus Level 2.8, Platelet Count 106, Potassium Level 3.8, Red Blood Count 3.95, Red Cell Distribution Width 12.6, Sodium Level 128, White Blood Count 5.51 Microbiology 10/29/16 Gram Stain, Unverified Pending Imaging Results 10.29.16 CXR Impression: Negative chest. 1.12.17 CXR Impression: Negative chest Assessment/Plan SIRS Met with fever, tachycardia, and tachypnea. Only intermittent fevers persist. Suspicious of a viral cause. BC's pending. CXR negative. Providing empiric ceftriaxone and azithromycin. Positive blood culture New. Continue abx, awaiting final gram stain and PCR. Continue abx. Positive for yeast and gram positive cocci. Starting fluconazole. Dyspnea On admission. Improving. Will monitor for supplemental oxygen needs. Continue IS and prn albuterol. Suspected viral syndrome Given fevers, chills, and malaise. Imaging negative as noted above. Viral PCR negative. Mycoplasma still pending. Continue abx noted above. Anxiety Continue lorazepam prn. Constipation Encourage use of bowel regimen. CHAIM Continue home CPAP. HTN Continue home carvedilol. DLD Continue home atorvastatin and fish oil. Parkinson disease Continue home carbidopa/levodopa/entacapone/amantidine, pramipexole, and primidone. Type II DM On metformin at home, continue here. Accu cheks 121-176. FEN Fluids provided on admission. I/o's and daily weights. Mild hyponatremia noted. Continue to monitor. Diabetic diet as note. DVT proph Lovenox, SCD's and CISCO hose. Code status Full code. Dispo Inpatient for above issues. Monitor cultures and PCR for mycoplasma. Positive blood culture for cocci and yeast. Starting IV fluconazole. Continue to treat fevers. HORTENCIA BILLS MD Oct 31, 2016 08:35
--- NOTE | 2016-10-31 09:34 | PT Daily Note Inpatient (E) ---
PT Daily Treatment Service Date/Time 10/31/16, 09:27 Medical Diagnosis: (1) Fever ICD Code: R50.9 Physical Therapy: (1) HTN (hypertension) (2) Fever ICD Code: R50.9 (3) SIRS (systemic inflammatory response syndrome) ICD Code: R65.10 Precaution/Isolation: Standard Precautions Resuscitation Status: Full Code Fall Level: High Risk 51 or greater Subjective Pt reports head/neck pain 2/10. He c/o fo being weak and tired. States he won't do any walking, but is willing to participate in exercises. Pain Level: 2 (head/neck) Oxygen Delivery: Room air O2 liters/minute: 0 Treatments Sit, Stand, Supine: Sitting, Standing Extremity: Both Lower Extremity Assistance: AROM Repetition: 2 x 10 Exercise: AP, QS, GS, Heel Slides, Hip Abduction (manual resistance), Hip Adduction (manual resistance), Hip Flexion (standing/sitting), TR (sitting/ standing), HR (sitting/standing) Static Balance: NBOS Duration: 2x 15 seconds Transfers Sit-Stand from bed: Minimal Assistance (x1) Gait Pt performed multiple x5 sit to stand and stand to sit w/ static balance. Pt requires min A x2 and SBA x3 to perform appropriately. Min cues for hand placement and control of movement. Weight Bearing Status: Full Gait Training: Limitations: Fatigue Education/Plan Assessment Pt continues to be weak and demo activity tolerance deficits. PT educates pt on the importance of performing exercise and movements to help maintain strength and mobility even while being sick secondary to "doing nothing and resting all day" will have greater impact on body and continue to leave pt weak. Pt voices understanding. Plan Patient will be seen: Daily Wednesday-Wednesday Coding Time In: 814 Time Out: 831 Total Minutes: 17 Charges: 13032 Exercise Therp 15 m ([place] 11/03) RAFAEL HERNÁNDEZ PT Oct 31, 2016 09:34
[2016-10-31 11:21] VITALS: BP 142/75
[2016-10-31] MEDS ORDERED: FLUCONAZOLE 400 MG/200 ML 200 ML IV ONE (11:55)
[2016-10-31] MEDS ORDERED: SODIUM CHLORIDE 100 ML IV PRN (12:10)
[2016-10-31] MEDS: SODIUM CHLORIDE FLUSH 10 ML SYR IV PRN (12:24)
[2016-10-31] MEDS: cefTRIAXone SODIUM 1,000 MG in SODIUM CHLORIDE 50 ML IV SCH (15:13)
[2016-10-31 15:38] VITALS: BP 98/61
[2016-10-31] MEDS: AZITHROMYCIN VIAL 500 MG in SODIUM CHLORIDE 250 ML IV SCH (16:12)
[2016-10-31 19:59] VITALS: BP 159/91
[2016-10-31] MEDS: PRIMIDONE 50 MG PO SCH (21:11)
[2016-11-01] MEDS: LORazepam 2 MG/ML (ATIVAN) 1 ML VIAL IV PRN ×2 (00:08→20:31)
[2016-11-01] MEDS: SODIUM CHLORIDE FLUSH 10 ML SYR IV PRN (00:09)
[2016-11-01 01:05] VITALS: BP 195/82
[2016-11-01 04:20] VITALS: BP 177/97
[2016-11-01] MEDS: INSULIN LISPRO 1 UNIT/0.01 ML (HUMALOG) DOSE SC SCH ×4 (06:07→21:00)
[2016-11-01] MEDS: HOME MEDICATION PO SCH ×4 (06:29→18:04)
[2016-11-01 06:31] LABS: MEAN CORPUSCULAR VOLUME 89 FL (80-100); MEAN PLATELET VOLUME 10.9 FL (6.0-9.5); PLATELET COUNT 109 10^3uL (150-450); WHITE BLOOD COUNT 3.82 10^3uL (4.0-11.0)
[2016-11-01 06:40] LABS: MEAN CORPUSCULAR HEMOGLOBIN 31.7 PG (26.0-34.0); MEAN CORPUSCULAR HGB CONC 35.8 g/dL (31.0-37.0)
[2016-11-01 07:07] LABS: ALBUMIN 3.9 g/dL (3.4-5.0); ANION GAP 14.4 MEQ/L (3-15); PHOSPHORUS 3.7 mg/dL (2.4-4.9)
[2016-11-01 07:49] VITALS: BP 176/81
[2016-11-01 08:14] LABS: BAND NEUTROPHILS % 2 % (0-6); EOSINOPHILS % 5 % (0-4); LYMPHOCYTES # 0.9 #; MONOCYTES # 0.3 #; MONOCYTES % 11 % (3-11); SEGMENTED NEUTROPHILS % 56 % (51-67); TOTAL CELLS COUNTED 100
[2016-11-01] MEDS: ATORVASTATIN 10 MG (LIPITOR) TABLET PO SCH (08:14)
[2016-11-01] MEDS: CYANOCOBALAMIN 1000 MCG (VITAMIN B-12) TABLET PO SCH (08:14)
[2016-11-01] MEDS: ASPIRIN 81 MG CHEW (CHILDREN'S ASA) PO SCH (08:14)
[2016-11-01] MEDS: CARVEDILOL 25 MG (COREG) TABLET PO SCH ×2 (08:14→18:04)
[2016-11-01 08:15] LABS: RBC MORPH NORMAL (NORMAL)
[2016-11-01] MEDS: OMEGA-3 ACID ETHYL ESTERS 1 GM (LOVAZA) CAPSULE PO SCH (08:15)
[2016-11-01] MEDS: MULTIVITAMIN W/MINERALS (THERAGRAN M) TABLET PO SCH (08:15)
[2016-11-01] MEDS: AMANTADINE 100 MG (SYMMETREL) CAP PO SCH ×2 (08:15→11:02)
[2016-11-01] MEDS: PRAMIPEXOLE 0.5 MG PO SCH ×3 (08:15→18:04)
[2016-11-01] MEDS: guaiFENesin ER 600 MG (MUCINEX) TAB PO SCH ×2 (08:15→20:27)
[2016-11-01] MEDS: ENOXAPARIN 40 MG/0.4 ML (LOVENOX) SYR SC SCH (08:16)
[2016-11-01 11:24] VITALS: BP 158/82
[2016-11-01] MEDS: FLUCONAZOLE 400 MG/200 ML 200 ML IV SCH (12:17)
--- NOTE | 2016-11-01 13:31 | Progress Note-A/P (E) ---
Progress Note Subjective: Patient is up to chair. is at bedside. Patient denies any fevers overnight. He states he is feeling better. He denies any abdominal pain, although he is endorsing some diarrhea. He denies any blood in his stools. He would like to go home. Discussed discharge plans. Questions answered. Objective: Current Medications Fluconazole 400mg IV q12hr Atorvastatin Calcium 40 mg DAILY PO Cyanocobalamin 1,000 mcg DAILY PO Pramipexole 0.5 mg TID PO Acetaminophen 650 mg Q6H PRN PO Calcium Carbonate 300 mg Q8H PRN PO Al Hydrox/Mg Hydrox/Simethicone 30 ml Q6H PRN PO Ondansetron HCl 4 mg Q6H PRN PO Promethazine Q6H PRN IV Magnesium Hydroxide 30 ml DAILY PRN PO Polyethylene Glycol 17 gm DAILY PRN PO Docusate Sodium 100 mg BID PRN PO Enoxaparin Sodium 40 mg DAILY SC Dextrose 15 gm Q15M PRN PO Dextrose PRN IV Glucagon 1 mg PRN IM Albuterol Sulfate 2.5 mg Q4H PRN INH Guaifenesin 1,200 mg BID PO Ceftriaxone 1000 mg DAILY@1600 IV Azithromycin DAILY@1700 IV Primidone 250 mg HS PO Cynwz-1-Agdg Ethyl Esters 1 gm DAILY PO Multivitamins DAILY@0800 PO Aspirin 81 mg DAILY@0900 PO Amantadine HCl 100 mg BID PO Insulin Human Lispro QIDACHS SC Ibuprofen 600 mg Q6H PRN PO Lorazepam 0.5 mg Q6H PRN IV Non-Formulary Medication 1 dose 0730,1130,15,19 PO Vital Signs Date Time Temp Pulse Resp B/P Pulse Ox O2 Delivery O2 Flow Rate FiO2 11/01/16 11:24 96.7 64 18 158/82 97 Room air I & O Past 24 hrs 11/01/16 07:00 Intake Total 1281 ml Output Total 2800 ml Balance -1519 ml Intake Oral 940 ml IV Total 341 ml Output Urine Total 2800 ml # Bowel Movements 2 General--Awake and alert. No distress. HEENT--Normocephalic. MMM in oral cavity. Lungs--CTA B. NLR's. Heart--RRR. No murmurs appreciated. Abdomen--NBS. S/ND/NTTP. Extremities--No edema noted to lower extremities. Past 24 hour Lab Results 11/01/16 05:20 Laboratory Results Past 24 Hrs 11/01/16 03:50: Urine Osmolality [Pending] 11/01/16 05:20: Absolute Band Neutrophils 0.1, Albumin 3.9, Anion Gap 14.4, Atypical Lymphocytes 3, Band Neutrophils % 2, Basophils # (Auto) , Basophils # (Manual) 0.0, Basophils % (Manual) 0, Basophils (%) (Auto) , Blood Morphology Comment Normal, Blood Urea Nitrogen 10, Calcium Level 8.7, Carbon Dioxide Level 23, Chloride Level 98, Creatinine 0.61, Differential Total Cells Counted 100, Eosinophils # 0.2, Eosinophils # (Auto) , Eosinophils % (Manual) 5, Eosinophils (%) (Auto) , Estimat Glomerular Filtration Rate 160.0, Estimated GFR (Non- 132.3, Glucose Level 134, Hematocrit 33.00, Hemoglobin 11.8, Lymphocytes # 0.9, Lymphocytes # (Auto) , Lymphocytes % (Manual) 23, Lymphocytes (%) (Auto) , Magnesium Level 2.0, Mean Corpuscular Hemoglobin 31.7, Mean Corpuscular Hemoglobin Concent 35.8, Mean Corpuscular Volume 89, Mean Platelet Volume 10.9, Metamyelocytes % 0, Monocytes # 0.3, Monocytes # (Auto) , Monocytes % (Manual) 11, Monocytes (%) (Auto) , Neutrophils # 2.1, Neutrophils # (Auto) , Neutrophils (%) (Auto) , Phosphorus Level 3.7, Platelet Count 109, Potassium Level 3.6, Red Blood Count 3.72, Red Cell Distribution Width 12.8, Segmented Neutrophils % 56, Serum Osmolality [Pending], Sodium Level 132, White Blood Count 3.82 Microbiology 10/29/16 Gram Stain - Final, Complete Imaging Results 10.29.16 CXR Impression: Negative chest. 10.29.16 CXR Impression: Negative chest Assessment/Plan SIRS Met with fever, tachycardia, and tachypnea. Resolved. Suspicious of a viral cause. BC's pending. CXR negative. Providing empiric ceftriaxone and azithromycin. Bacteremia/fungemia Continue abx, awaiting final gram stain and PCR. Positive for yeast and gram positive cocci. Started fluconazole 10.31.16. Dyspnea On admission. Improving. Will monitor for supplemental oxygen needs. Continue IS and prn albuterol. Suspected viral syndrome Given fevers, chills, and malaise. Imaging negative as noted above. Viral PCR negative. Mycoplasma still pending (lab has been contacted). Continue abx noted above. Anxiety Continue lorazepam prn. Constipation Encourage use of bowel regimen. CHAIM Continue home CPAP. HTN Continue home carvedilol. DLD Continue home atorvastatin and fish oil. Parkinson disease Continue home carbidopa/levodopa/entacapone/amantidine, pramipexole, and primidone. Type II DM On metformin at home, continue here. Accu cheks 131-171. SSI. FEN Fluids provided on admission. I/o's and daily weights. Mild hyponatremia improving. Continue to monitor. Diabetic diet as note. DVT proph Lovenox, SCD's and CISCO hose. Code status Full code. Dispo Inpatient for above issues. Monitor cultures and mycoplasma results. Positive blood culture for cocci and yeast, continue abx and antifungals. HORTENCIA BILLS MD Nov 01, 2016 13:31
[2016-11-01 15:27] VITALS: BP 172/85
[2016-11-01] MEDS: cefTRIAXone SODIUM 1,000 MG in SODIUM CHLORIDE 50 ML IV SCH (16:34)
[2016-11-01 20:18] VITALS: BP 184/96
[2016-11-01] MEDS: PRIMIDONE 50 MG PO SCH (20:31)
[2016-11-01] MEDS: SODIUM CHLORIDE FLUSH 3 ML SYR IV PRN (20:31)
[2016-11-02] VITALS (10 sets, daily range): BP systolic 110–196; BP diastolic 78–104
[2016-11-02 06:00] LABS: BASOPHILS % (AUTO) 1 % (0-2); EOSINOPHILS # (AUTO) 0.2 10^3uL; EOSINOPHILS % (AUTO) 5 % (0-4); MEAN CORPUSCULAR HEMOGLOBIN 30.8 PG (26.0-34.0); MEAN CORPUSCULAR HGB CONC 34.8 g/dL (31.0-37.0); MEAN CORPUSCULAR VOLUME 89 FL (80-100); MEAN PLATELET VOLUME 10.2 FL (6.0-9.5); MONOCYTES # (AUTO) 0.6 X10^3; MONOCYTES % (AUTO) 13 % (3-11); NEUTROPHILS # (AUTO) 2.6 X10^3; NEUTROPHILS % (AUTO) 58 % (51-67); PLATELET COUNT 137 10^3uL (150-450); WHITE BLOOD COUNT 4.42 10^3uL (4.0-11.0)
[2016-11-02 06:09] LABS: ALBUMIN 4.1 g/dL (3.4-5.0); ANION GAP 15.1 MEQ/L (3-15); MAGNESIUM* 1.8 mg/dL (1.6-2.3); PHOSPHORUS 4.2 mg/dL (2.4-4.9)
[2016-11-02] MEDS: INSULIN LISPRO 1 UNIT/0.01 ML (HUMALOG) DOSE SC SCH ×4 (06:24→21:00)
[2016-11-02] MEDS: PRAMIPEXOLE 0.5 MG PO SCH ×4 (06:41→18:04)
[2016-11-02] MEDS: AMANTADINE 100 MG (SYMMETREL) CAP PO SCH ×2 (06:42→11:18)
[2016-11-02] MEDS: HOME MEDICATION PO SCH ×4 (06:45→19:13)
[2016-11-02] MEDS: CARVEDILOL 25 MG (COREG) TABLET PO SCH ×2 (07:35→18:04)
[2016-11-02] MEDS: CALCIUM CARBONATE CHEWABLE 300 MG (TUMS) TABLET PO PRN (07:35)
[2016-11-02] MEDS: ACETAMINOPHEN 325 MG TAB (TYLENOL) PO PRN (07:35)
[2016-11-02] MEDS: ONDANSETRON 4 MG (ZOFRAN) ORAL DISSOLVE TAB PO PRN (07:35)
[2016-11-02] MEDS: MULTIVITAMIN W/MINERALS (THERAGRAN M) TABLET PO SCH (07:35)
[2016-11-02] MEDS: ASPIRIN 81 MG CHEW (CHILDREN'S ASA) PO SCH (08:29)
[2016-11-02] MEDS: CYANOCOBALAMIN 1000 MCG (VITAMIN B-12) TABLET PO SCH (08:29)
[2016-11-02] MEDS: OMEGA-3 ACID ETHYL ESTERS 1 GM (LOVAZA) CAPSULE PO SCH (08:29)
[2016-11-02] MEDS: ENOXAPARIN 40 MG/0.4 ML (LOVENOX) SYR SC SCH (08:30)
[2016-11-02] MEDS: ATORVASTATIN 10 MG (LIPITOR) TABLET PO SCH (08:30)
--- NOTE | 2016-11-02 10:37 | Progress Note (E) ---
Progress Note SUBJECTIVE Overnight, no major issues reported and he reportedly slept well. Afebrile for > 24 hours. Having multiple BM. RN reported that this AM he sat up at edge of bed and felt dizzy and weak. Still having mild MEMBRENO and had some nausea this AM. Noted that BP has actually been high despite being on home dose of carvedilol. Got ondansetron. WBC normal with no bands. Chemistry stable. Noted that one of 2 blood cultures from 10/29 grew gram positive cocci and a few yeast at nearly 48 hours. Has since been on fluconazole and ceftriaxone. OBJECTIVE Vital Signs Date Time Temp Pulse Resp B/P Pulse Ox O2 Delivery O2 Flow Rate FiO2 11/02/16 09:15 66 152/80 11/02/16 07:38 97.0 18 96 Room air I & O 11/01/16 11/02/16 Cumulative From/Thru 19:00 07:00 10/29/16 13:58 - 11/02/16 05:48 Intake Total 559 ml 940 ml 4969 ml Output Total 725 ml 1575 ml 8375 ml Balance -166 ml -635 ml -3406 ml GEN: Awake, alert, interactive, oriented. NAD at present. HEENT: EOMI, clear sclerae, moist oral mucosa. CV: RRR S1 S2 normal with no murmur LUNGS: CTA B with diminished bases. No R/R/W. ABD: Soft, mildly distended but tolerates exam and no tenderness or guarding. Hyperactive bowel sounds. EXTR: Trace ankle edema. INTEG: No rash. Warm, dry, well, perfused. NEURO: Generalized weakness but improved. Mild delirium has resolved. Tremor in arms and legs but improved since admission. Lab-Past 14 Days, 35 Results 10/29/16 14:10: Absolute Band Neutrophils 0.2, Acinetobacter baumannii (PCR) Negative, Alanine Aminotransferase (ALT/SGPT) 31, Albumin 4.6, Albumin/Globulin Ratio 1.703, Alkaline Phosphatase 97, Anion Gap 18.5H, Antimicrobial Susceptibility , Aspartate Amino Transf (AST/SGOT) 42H, BUN/Creatinine Ratio 17, Band Neutrophils % 2, Basophils # (Auto) , Basophils # (Manual) 0.0, Basophils % ( Manual) 0, Basophils (%) (Auto) , Blood Morphology Comment Normal, Blood Urea Nitrogen 13, Calcium Level 9.3, Calcium/Ionized Calcium Ratio 4.0, Calculated Osmolality 251L, Sharmila albicans (PCR) Negative, Sharmila glabrata (PCR) Negative, Sharmila krusei (PCR) Negative, Sharmila parapsilosis (PCR) Negative, Sharmila tropicalis (PCR) Negative, Carbon Dioxide Level 22, Chloride Level 92L, Creatinine 0.77L, Differential Total Cells Counted 100, Enterobacter cloacae complex (PCR) Negative, Enterobacteriaceae species (PCR) Negative, Enterococcus species (PCR) Negative, Eosinophils # 0.0, Eosinophils # (Auto) , Eosinophils % (Manual) 0, Eosinophils (%) (Auto) , Escherichia coli (PCR) Negative, Estimat Glomerular Filtration Rate 122.3, Estimated GFR (Non- 101.1, Glucose Level 150H, Group B Streptococcus (PCR) Negative, Haemophilis influenzae (PCR) Negative, Hematocrit 36.80L, Hemoglobin 12.8L, KPC-Carbapenem Resistance Gene Negative, Klebsiella oxytoca (PCR) Negative, Klebsiella pneumoniae (PCR) Negative, Lactic Acid Level 2.1, Listeria monocytogenes (PCR) Negative, Lymphocytes # 0.5, Lymphocytes # (Auto) , Lymphocytes % (Manual) 5L, Lymphocytes (%) (Auto) , Mean Corpuscular Hemoglobin 30.9, Mean Corpuscular Hemoglobin Concent 34.8, Mean Corpuscular Volume 89, Mean Platelet Volume 10.5H , Metamyelocytes % 0, Monocytes # 0.3, Monocytes # (Auto) , Monocytes % (Manual ) 3, Monocytes (%) (Auto) , NN-Tbb-P-Type Natriuretic Peptide 814H, Neisseria meningitidis (PCR) Negative, Neutrophils # 9.0, Neutrophils # (Auto) , Neutrophils (%) (Auto) , Platelet Count 118L, Potassium Level 4.2, Proteus species (PCR) Negative, Pseudomonas aeruginosa (PCR) Negative, Red Blood Count 4.14L, Red Cell Distribution Width 12.6, Segmented Neutrophils % 90H, Serratia marcescens (PCR) Negative, Sodium Level 128L, Staphylococcus aureus (PCR)(LAB) Negative, Staphylococcus species (PCR) Negative, Streptococcus pneumoniae (PCR) Negative, Streptococcus pyogenes (TEM-PCR) Negative, Streptococcus species (PCR ) Negative, Total Bilirubin 0.8, Total Protein 7.3, Anya/B-Vancomycin Resistance Genes Negative, White Blood Count 10.00, mecA-Methicillin Resistance Gene Negative 10/29/16 14:15: Urine Bacteria None seen, Urine Bilirubin Negative, Urine Blood Negative, Urine Clarity Clear, Urine Collection Type Clean catch, Urine Color [place], Urine Glucose (UA) Negative, Urine Ketones TraceH, Urine Leukocyte Esterase Negative, Urine Microscopic RBC 0-2, Urine Mucus 3+H, Urine Nitrite Negative, Urine Protein 2+H, Urine Specific [place] 1.020, Urine Squamous Epithelial Cells 2-5, Urine Urobilinogen 0.2, Urine WBC None seen, Urine pH 7.0, Volume Urine Centrifuged 12 ml 10/29/16 15:05: Influenza Virus Type A Antibody Negative, Influenza Virus Type B Antibody Negative 10/29/16 15:12: Mycoplasma pneumoniae IgM Antibody [Pending] 10/30/16 05:30: Absolute Band Neutrophils 0.1, Albumin 4.0, Anion Gap 13.9, Band Neutrophils % 2 , Basophils # (Auto) , Basophils # (Manual) 0.0, Basophils % (Manual) 0, Basophils (%) (Auto) , Blood Morphology Comment Normal, Blood Urea Nitrogen 13, Calcium Level 8.5L, Carbon Dioxide Level 24, Chloride Level 94L, Creatinine 0.73L, Differential Total Cells Counted 100, Eosinophils # 0.0, Eosinophils # ( Auto) , Eosinophils % (Manual) 0, Eosinophils (%) (Auto) , Estimat Glomerular Filtration Rate 130.1, Estimated GFR (Non- 107.5, Glucose Level 166H, Hematocrit 34.00L, Hemoglobin 12.0L, Lymphocytes # 0.8, Lymphocytes # ( Auto) , Lymphocytes % (Manual) 13L, Lymphocytes (%) (Auto) , Mean Corpuscular Hemoglobin 31.7, Mean Corpuscular Hemoglobin Concent 35.3, Mean Corpuscular Volume 90, Mean Platelet Volume 10.3H, Metamyelocytes % 0, Monocytes # 0.1, Monocytes # (Auto) , Monocytes % (Manual) 2L, Monocytes (%) (Auto) , Neutrophils # 5.1, Neutrophils # (Auto) , Neutrophils (%) (Auto) , Phosphorus Level 2.6, Platelet Count 101L, Polychromasia , Potassium Level 3.9, Red Blood Count 3.79L, Red Cell Distribution Width 13.0, Segmented Neutrophils % 83H, Sodium Level 128L, White Blood Count 6.16 10/30/16 08:56: Adenovirus (PCR) Negative, Bordetella parapertussis DNA (PCR) Negative, Chlamydophila pneumoniae (PCR) Negative, Coronavirus Type 229E (PCR) Negative, Coronavirus Type HKU1 (PCR) Negative, Coronavirus Type NL63 (PCR) Negative, Coronavirus Type OC43 (PCR) Negative, Enterovirus/Rhinovirus (PCR) Negative, Human Metapneumovirus (PCR) Negative, Influenza Type A (H1) (PCR) Negative, Influenza Virus Type B (PCR) Negative, Mycoplasma pneumoniae (PCR) Negative, Parainfluenza Type 1 (PCR) Negative, Parainfluenza Type 2 (PCR) Negative, Parainfluenza Type 3 (PCR) Negative, Parainfluenza Type 4 (PCR) Negative, Respiratory Syncytial Virus (PCR) Negative 10/30/16 10:00: Urine Random Creatinine 231H, Urine Random Sodium 88 10/30/16 10:50: Lab Scanned Report REFERENCE LABS 10/31/16 06:29: Albumin 4.1, Anion Gap 13.7, Basophils # (Auto) 0.0, Basophils (%) (Auto) 0, Blood Urea Nitrogen 10, Calcium Level 8.7L, Carbon Dioxide Level 24, Chloride Level 95L, Creatinine 0.61L, Eosinophils # (Auto) 0.1, Eosinophils (%) (Auto) 1 , Estimat Glomerular Filtration Rate 160.0, Estimated GFR (Non- 132.3, Glucose Level 151H, Hematocrit 34.80L, Hemoglobin 12.2L, Hemoglobin A1c 7.1H, Lymphocytes # (Auto) 0.5, Lymphocytes (%) (Auto) 10L, Magnesium Level 1.8 , Mean Corpuscular Hemoglobin 30.9, Mean Corpuscular Hemoglobin Concent 35.1, Mean Corpuscular Volume 88, Mean Platelet Volume 10.5H, Monocytes # (Auto) 0.6, Monocytes (%) (Auto) 11, Neutrophils # (Auto) 4.3, Neutrophils (%) (Auto) 77H, Phosphorus Level 2.8, Platelet Count 106L, Potassium Level 3.8, Red Blood Count 3.95L, Red Cell Distribution Width 12.6, Sodium Level 128L, White Blood Count 5.51 11/01/16 03:50: Urine Osmolality [Pending] 11/01/16 05:20: Albumin 3.9, Anion Gap 14.4, Basophils # (Auto) , Basophils (%) (Auto) , Blood Urea Nitrogen 10, Calcium Level 8.7L, Carbon Dioxide Level 23, Chloride Level 98 , Creatinine 0.61L, Eosinophils # (Auto) , Eosinophils (%) (Auto) , Estimat Glomerular Filtration Rate 160.0, Estimated GFR (Non- 132.3, Glucose Level 134H, Hematocrit 33.00L, Hemoglobin 11.8L, Lymphocytes # (Auto) , Lymphocytes (%) (Auto) , Magnesium Level 2.0, Mean Corpuscular Hemoglobin 31.7, Mean Corpuscular Hemoglobin Concent 35.8, Mean Corpuscular Volume 89, Mean Platelet Volume 10.9H, Monocytes # (Auto) , Monocytes (%) (Auto) , Neutrophils # (Auto) , Neutrophils (%) (Auto) , Phosphorus Level 3.7#, Platelet Count 109L, Potassium Level 3.6, Red Blood Count 3.72L, Red Cell Distribution Width 12.8, Sodium Level 132L, White Blood Count 3.82L, Absolute Band Neutrophils 0.1, Atypical Lymphocytes 3, Band Neutrophils % 2, Basophils # (Manual) 0.0, Basophils % (Manual) 0, Blood Morphology Comment Normal, Differential Total Cells Counted 100, Eosinophils # 0.2, Eosinophils % (Manual) 5H, Lymphocytes # 0.9, Lymphocytes % (Manual) 23, Metamyelocytes % 0, Monocytes # 0.3, Monocytes % (Manual) 11, Neutrophils # 2.1, Segmented Neutrophils % 56, Serum Osmolality 271L 11/02/16 05:30: Albumin 4.1, Anion Gap 15.1H, Basophils # (Auto) 0.1, Basophils (%) (Auto) 1, Blood Urea Nitrogen 9, Calcium Level 9.3, Carbon Dioxide Level 27, Chloride Level 99, Creatinine 0.67L, Eosinophils # (Auto) 0.2, Eosinophils (%) (Auto) 5H , Estimat Glomerular Filtration Rate 143.6, Estimated GFR (Non- 118.7, Glucose Level 148H, Hematocrit 35.10L, Hemoglobin 12.2L, Lymphocytes # ( Auto) 1.0, Lymphocytes (%) (Auto) 22, Magnesium Level 1.8, Mean Corpuscular Hemoglobin 30.8, Mean Corpuscular Hemoglobin Concent 34.8, Mean Corpuscular Volume 89, Mean Platelet Volume 10.2H, Monocytes # (Auto) 0.6, Monocytes (%) ( Auto) 13H, Neutrophils # (Auto) 2.6, Neutrophils (%) (Auto) 58, Phosphorus Level 4.2, Platelet Count 137L, Potassium Level 4.1, Red Blood Count 3.96L, Red Cell Distribution Width 12.8, Sodium Level 137, White Blood Count 4.42 MICRO 10/30 Resp PCR Panel negative 10/29 Blood culture 1 of 2 growing yeast and gram positive cocci 10/29 Influenza A/B Negative 10/29 Mycoplasma PENDING IMAGING 10/30/16 CHEST PA/LAT (2 VIEW)* Indication: Shortness of breath PA and lateral chest Heart size and pulmonary vascular normal. Lungs are clear. There are no effusions or pneumothoraces. Impression: Negative chest 10/29/16 CHEST 1 VIEW, AP/PA ONLY* Indication: Shortness breath. Exam: Portable chest at 2:37 PM Findings: The heart size and pulmonary vascularity are normal. The lungs are clear. There are no effusions or pneumothoraces. Impression: Negative chest. ASSESSMENT Carlos Alberto Goodwin is a 66 year old male admitted from ED 10/29 with SIRS and possible sepsis though source was uncertain. He had fever, chills, increased Parkinsonian tremor, and labs were notable WBC 10 with 90% N and 2% bands. He had hyponatremia, generalized weakness. He has several chronic problems. PLAN * SIRS: Source uncertain. May be viral. Blood culture still pending. Repeat CXR after hydration was negative. Empiric ceftriaxone, azithromycin. * Acute Respiratory Distress: Resolved. Mild on admit, subjective. Oxygen protocol. IS. Albuterol PRN. * Viral Syndrome: Tentative diagnosis for fever/chills and malaise. Considered pneumonia but imaging makes this much less likely. Check respiratory PCR panel. Empiric antibiotics as above pending blood culture result. * Bacteremia, Fungemia: One of two cultures positive. Speciation still pending. Empiric ceftriaxone given on admit. Fluconazole added 10/31. * Dehydration: Resolved. On the basis of labs, exam. NS bolus in ED. Additional liter maintenance. I&O, daily weight. * Fever: Resolved. Acetaminophen, ibuprofen. * Anxiety: Improved. Aggravated by current illness. Lorazepam PRN stopped 11/02. * HTN, Uncontrolled: Has been on home dose carvedilol but BP trend has been high. Added lisinopril 11/02. * Constipation: Resolved. Encouraged use of PRN bowel regimen. * F/E/N: Diabetic diet. IVF as above. Peripheral IV. * Prophylaxis: Enoxaparin * Code Status: Full * Dispo: Inpatient. Discharge deferred pending culture results. CHRONIC ISSUES * CHAIM: Home CPAP. * HLD: Atorvastatin, fish oil * Parkinson's Disease: Carbidopa/levodopa/entacapone, amantadine, pramipexole, primidone * Diabetes Mellitus Type II: Metformin, sliding scale. ENE LEE MD Nov 02, 2016 10:37
--- NOTE | 2016-11-02 11:15 | OT Daily Note Inpatient (E) ---
OT Daily Treatment Service Date/Time 11/02/16, 11:14 Primary Diagnosis: (1) Fever ICD Code: R50.9 Treatment Diagnosis: (1) Weakness ICD Code: R53.1 Onset Date: 10/29/16 Start of Care Date: Oct 30, 2016 Precaution/Isolation: Standard Precautions Fall Level: High Risk 51 or greater Resuscitation Status: Full Code General Informantion Therapist attempted to work with pt this morning. Unable to at this time secondary to meeting with physician and nurses discussing findings and plan of care. Therapist will attempt to see pt later in the day as able due to therapist having to go to multiple hospitals this date. Oxygen Needed: Room air O2 liters/minute: 0 Current Function Assessment Cognition Attention: Intact Memory: Intact Safety/Judgement: Impaired Visual/Perceptual Skills Hearing: Intact Hand Dominance Hand Dominance: Right Education/Assessment Rehabilitation Potential: Good POC Plan of Care Problems Identified: Activity Tolerance, ADLs, Balance, Lt UE Strength, Rt UE Strength, Safety Awareness Plan: Evaluation-OT, ADL/Self Care Management, Therapy Exercises, Therapy Activities, Pt/Family/Staff Education Frequency of OT: Five times weekly Duration of OT: Other (5 days ) Therapy to Include: ADL training, Balance with ADLs, Pt/family education, Therapeutic activities, UE strengthing Discharge Recommendations: Caregiver support Pt. Aware of Dx and Prognosis: Yes Pt. Aware of Risk & Benefit: Yes Goals: Discussed with patient, Discussed with family Short Term Goals STG Time Frame: 3 Days Will Perform Grooming: CGA Will Dress Lower Extremity: With Setup/SBA Will do Bathing: With Min Assistance Will do Toileting: CGA STG #1 Pt will participate in 15 min of ther-ex with 4 or less rest breaks. Snf Goals LTG Time Frame: 5 Days Will Dress Upper Extremity: Independently Will Dress Lower Extremity: Independently Will do Tub/Shower Transfer: Independently Will Bathe Self: With Setup/SBA Will do Toilet Transfers: Independently Will do Toilieting: Independently CECILY PATEL OT Nov 02, 2016 11:15
[2016-11-02] MEDS: FLUCONAZOLE 400 MG/200 ML 200 ML IV SCH (11:17)
[2016-11-02] MEDS: lisINopril 20 MG (PRINIVIL) TABLET PO SCH (11:18)
--- NOTE | 2016-11-02 13:54 | PT Daily Note Inpatient (E) ---
PT Daily Treatment Service Date/Time 11/02/16, 13:50 Medical Diagnosis: (1) Fever ICD Code: R50.9 Physical Therapy: (1) HTN (hypertension) (2) Fever ICD Code: R50.9 (3) SIRS (systemic inflammatory response syndrome) ICD Code: R65.10 Precaution/Isolation: Standard Precautions Resuscitation Status: Full Code Fall Level: High Risk 51 or greater Subjective pt in chair, working on laptop, agrees to therapy but has a "touchy" iv that occludes quite easily Pain Level: 0 Oxygen Delivery: Room air O2 liters/minute: 0 Treatments Sit, Stand, Supine: Long Sitting (& sitting) Extremity: Both Lower Extremity Assistance: AROM Repetition: 2 x 10 Exercise: AP, Heel Slides, Hip Abduction, SLR, LAQ, Hip Flexion, External Rotation, Internal Rotation Gait holding for now secondary to IV occluding easily, pt states he walks to the shower and will walk with his & FWW around the unit Education/Plan Assessment tolerates exercises well, experienced hamstring m. cramping 2x during therapy, worked out with stretching Safety Awareness: Impaired Response to Treatment: Improving Plan Cont POC Patient will be seen: Daily Wednesday-Wednesday Discharge Recommendations: Caregiver support Coding Time In: 1331 Time Out: 1350 Total Minutes: 19 Charges: [id number] Exercise Therp Yong m JOSE GOMEZ [employer] Nov 02, 2016 13:54
[2016-11-02] MEDS: cefTRIAXone SODIUM 1,000 MG in SODIUM CHLORIDE 50 ML IV SCH (15:48)
[2016-11-02] MEDS: PRIMIDONE 50 MG PO SCH (21:07)
[2016-11-03] MEDS: LORazepam 1 MG (ATIVAN) TABLET PO PRN ×2 (01:57→20:02)
[2016-11-03 04:31] VITALS: BP 159/84
[2016-11-03] MEDS: INSULIN LISPRO 1 UNIT/0.01 ML (HUMALOG) DOSE SC SCH ×4 (06:11→20:59)
[2016-11-03] MEDS: HOME MEDICATION PO SCH ×4 (06:30→18:43)
[2016-11-03] MEDS: PRAMIPEXOLE 0.5 MG PO SCH ×3 (06:30→17:48)
[2016-11-03] MEDS: AMANTADINE 100 MG (SYMMETREL) CAP PO SCH ×2 (07:16→11:03)
[2016-11-03 07:28] VITALS: BP 158/93
[2016-11-03] MEDS: OMEGA-3 ACID ETHYL ESTERS 1 GM (LOVAZA) CAPSULE PO SCH (08:24)
[2016-11-03] MEDS: CARVEDILOL 25 MG (COREG) TABLET PO SCH ×2 (08:24→17:48)
[2016-11-03] MEDS: CYANOCOBALAMIN 1000 MCG (VITAMIN B-12) TABLET PO SCH (08:24)
[2016-11-03] MEDS: lisINopril 20 MG (PRINIVIL) TABLET PO SCH (08:24)
[2016-11-03] MEDS: ASPIRIN 81 MG CHEW (CHILDREN'S ASA) PO SCH (08:24)
[2016-11-03] MEDS: ATORVASTATIN 10 MG (LIPITOR) TABLET PO SCH (08:24)
[2016-11-03] MEDS: MULTIVITAMIN W/MINERALS (THERAGRAN M) TABLET PO SCH (08:24)
[2016-11-03] MEDS: ENOXAPARIN 40 MG/0.4 ML (LOVENOX) SYR SC SCH (08:25)
--- NOTE | 2016-11-03 11:10 | Progress Note (E) ---
Progress Note SUBJECTIVE Overnight, no major issues reported. He remained afebrile. Other vitals stable. Stopped fluconazole yesterday because blood culture isn't showing yeast. It does show "anaerobic gram negative bacilli" but he clinically is quite improved on ceftriaxone. Completed a previously scheduled 5-day course but extending with ertapenem until culture results known. He is overall feeling better though feels his strength and endurance are not back to baseline. OBJECTIVE Vital Signs Date Time Temp Pulse Resp B/P Pulse Ox O2 Delivery O2 Flow Rate FiO2 11/03/16 07:28 96.8 72 18 158/93 91 Room air I & O 11/02/16 11/03/16 Cumulative From/Thru 19:00 07:00 10/29/16 13:58 - 11/03/16 06:01 Intake Total 296 ml 754 ml 6019 ml Output Total 900 ml 2000 ml 46927 ml Balance -604 ml -1246 ml -5256 ml GEN: Awake, alert, interactive, oriented. NAD at present. HEENT: EOMI, clear sclerae, moist oral mucosa. CV: RRR S1 S2 normal with no murmur LUNGS: CTA B with diminished bases. No R/R/W. ABD: Soft NT/ND with hyperactive bowel sounds. EXTR: Trace ankle edema. INTEG: No rash. Warm, dry, well, perfused. NEURO: Generalized weakness but improved. Tremor in arms and legs but improved since admission and he feels they are at baseline. Lab-Past 14 Days, 35 Results 10/29/16 14:10: Absolute Band Neutrophils 0.2, Acinetobacter baumannii (PCR) Negative, Alanine Aminotransferase (ALT/SGPT) 31, Albumin 4.6, Albumin/Globulin Ratio 1.703, Alkaline Phosphatase 97, Anion Gap 18.5H, Antimicrobial Susceptibility , Aspartate Amino Transf (AST/SGOT) 42H, BUN/Creatinine Ratio 17, Band Neutrophils % 2, Basophils # (Auto) , Basophils # (Manual) 0.0, Basophils % ( Manual) 0, Basophils (%) (Auto) , Blood Morphology Comment Normal, Blood Urea Nitrogen 13, Calcium Level 9.3, Calcium/Ionized Calcium Ratio 4.0, Calculated Osmolality 251L, Sharmila albicans (PCR) Negative, Sharmila glabrata (PCR) Negative, Sharmila krusei (PCR) Negative, Sharmila parapsilosis (PCR) Negative, Sharmila tropicalis (PCR) Negative, Carbon Dioxide Level 22, Chloride Level 92L, Creatinine 0.77L, Differential Total Cells Counted 100, Enterobacter cloacae complex (PCR) Negative, Enterobacteriaceae species (PCR) Negative, Enterococcus species (PCR) Negative, Eosinophils # 0.0, Eosinophils # (Auto) , Eosinophils % (Manual) 0, Eosinophils (%) (Auto) , Escherichia coli (PCR) Negative, Estimat Glomerular Filtration Rate 122.3, Estimated GFR (Non- 101.1, Glucose Level 150H, Group B Streptococcus (PCR) Negative, Haemophilis influenzae (PCR) Negative, Hematocrit 36.80L, Hemoglobin 12.8L, KPC-Carbapenem Resistance Gene Negative, Klebsiella oxytoca (PCR) Negative, Klebsiella pneumoniae (PCR) Negative, Lactic Acid Level 2.1, Listeria monocytogenes (PCR) Negative, Lymphocytes # 0.5, Lymphocytes # (Auto) , Lymphocytes % (Manual) 5L, Lymphocytes (%) (Auto) , Mean Corpuscular Hemoglobin 30.9, Mean Corpuscular Hemoglobin Concent 34.8, Mean Corpuscular Volume 89, Mean Platelet Volume 10.5H , Metamyelocytes % 0, Monocytes # 0.3, Monocytes # (Auto) , Monocytes % (Manual ) 3, Monocytes (%) (Auto) , QM-Odb-A-Type Natriuretic Peptide 814H, Neisseria meningitidis (PCR) Negative, Neutrophils # 9.0, Neutrophils # (Auto) , Neutrophils (%) (Auto) , Platelet Count 118L, Potassium Level 4.2, Proteus species (PCR) Negative, Pseudomonas aeruginosa (PCR) Negative, Red Blood Count 4.14L, Red Cell Distribution Width 12.6, Segmented Neutrophils % 90H, Serratia marcescens (PCR) Negative, Sodium Level 128L, Staphylococcus aureus (PCR)(LAB) Negative, Staphylococcus species (PCR) Negative, Streptococcus pneumoniae (PCR) Negative, Streptococcus pyogenes (TEM-PCR) Negative, Streptococcus species (PCR ) Negative, Total Bilirubin 0.8, Total Protein 7.3, Anya/B-Vancomycin Resistance Genes Negative, White Blood Count 10.00, mecA-Methicillin Resistance Gene Negative 10/29/16 14:15: Urine Bacteria None seen, Urine Bilirubin Negative, Urine Blood Negative, Urine Clarity Clear, Urine Collection Type Clean catch, Urine Color Randolph, Urine Glucose (UA) Negative, Urine Ketones TraceH, Urine Leukocyte Esterase Negative, Urine Microscopic RBC 0-2, Urine Mucus 3+H, Urine Nitrite Negative, Urine Protein 2+H, Urine Specific [place] 1.020, Urine Squamous Epithelial Cells 2-5, Urine Urobilinogen 0.2, Urine WBC None seen, Urine pH 7.0, Volume Urine Centrifuged 12 ml 10/29/16 15:05: Influenza Virus Type A Antibody Negative, Influenza Virus Type B Antibody Negative 10/29/16 15:12: Mycoplasma pneumoniae IgM Antibody [Pending] 10/30/16 05:30: Absolute Band Neutrophils 0.1, Albumin 4.0, Anion Gap 13.9, Band Neutrophils % 2 , Basophils # (Auto) , Basophils # (Manual) 0.0, Basophils % (Manual) 0, Basophils (%) (Auto) , Blood Morphology Comment Normal, Blood Urea Nitrogen 13, Calcium Level 8.5L, Carbon Dioxide Level 24, Chloride Level 94L, Creatinine 0.73L, Differential Total Cells Counted 100, Eosinophils # 0.0, Eosinophils # ( Auto) , Eosinophils % (Manual) 0, Eosinophils (%) (Auto) , Estimat Glomerular Filtration Rate 130.1, Estimated GFR (Non- 107.5, Glucose Level 166H, Hematocrit 34.00L, Hemoglobin 12.0L, Lymphocytes # 0.8, Lymphocytes # ( Auto) , Lymphocytes % (Manual) 13L, Lymphocytes (%) (Auto) , Mean Corpuscular Hemoglobin 31.7, Mean Corpuscular Hemoglobin Concent 35.3, Mean Corpuscular Volume 90, Mean Platelet Volume 10.3H, Metamyelocytes % 0, Monocytes # 0.1, Monocytes # (Auto) , Monocytes % (Manual) 2L, Monocytes (%) (Auto) , Neutrophils # 5.1, Neutrophils # (Auto) , Neutrophils (%) (Auto) , Phosphorus Level 2.6, Platelet Count 101L, Polychromasia , Potassium Level 3.9, Red Blood Count 3.79L, Red Cell Distribution Width 13.0, Segmented Neutrophils % 83H, Sodium Level 128L, White Blood Count 6.16 10/30/16 08:56: Adenovirus (PCR) Negative, Bordetella parapertussis DNA (PCR) Negative, Chlamydophila pneumoniae (PCR) Negative, Coronavirus Type 229E (PCR) Negative, Coronavirus Type HKU1 (PCR) Negative, Coronavirus Type NL63 (PCR) Negative, Coronavirus Type OC43 (PCR) Negative, Enterovirus/Rhinovirus (PCR) Negative, Human Metapneumovirus (PCR) Negative, Influenza Type A (H1) (PCR) Negative, Influenza Virus Type B (PCR) Negative, Mycoplasma pneumoniae (PCR) Negative, Parainfluenza Type 1 (PCR) Negative, Parainfluenza Type 2 (PCR) Negative, Parainfluenza Type 3 (PCR) Negative, Parainfluenza Type 4 (PCR) Negative, Respiratory Syncytial Virus (PCR) Negative 10/30/16 10:00: Urine Random Creatinine 231H, Urine Random Sodium 88 10/30/16 10:50: Lab Scanned Report REFERENCE LABS 10/31/16 06:29: Albumin 4.1, Anion Gap 13.7, Basophils # (Auto) 0.0, Basophils (%) (Auto) 0, Blood Urea Nitrogen 10, Calcium Level 8.7L, Carbon Dioxide Level 24, Chloride Level 95L, Creatinine 0.61L, Eosinophils # (Auto) 0.1, Eosinophils (%) (Auto) 1 , Estimat Glomerular Filtration Rate 160.0, Estimated GFR (Non- 132.3, Glucose Level 151H, Hematocrit 34.80L, Hemoglobin 12.2L, Hemoglobin A1c 7.1H, Lymphocytes # (Auto) 0.5, Lymphocytes (%) (Auto) 10L, Magnesium Level 1.8 , Mean Corpuscular Hemoglobin 30.9, Mean Corpuscular Hemoglobin Concent 35.1, Mean Corpuscular Volume 88, Mean Platelet Volume 10.5H, Monocytes # (Auto) 0.6, Monocytes (%) (Auto) 11, Neutrophils # (Auto) 4.3, Neutrophils (%) (Auto) 77H, Phosphorus Level 2.8, Platelet Count 106L, Potassium Level 3.8, Red Blood Count 3.95L, Red Cell Distribution Width 12.6, Sodium Level 128L, White Blood Count 5.51 11/01/16 03:50: Urine Osmolality [Pending] 11/01/16 05:20: Albumin 3.9, Anion Gap 14.4, Basophils # (Auto) , Basophils (%) (Auto) , Blood Urea Nitrogen 10, Calcium Level 8.7L, Carbon Dioxide Level 23, Chloride Level 98 , Creatinine 0.61L, Eosinophils # (Auto) , Eosinophils (%) (Auto) , Estimat Glomerular Filtration Rate 160.0, Estimated GFR (Non- 132.3, Glucose Level 134H, Hematocrit 33.00L, Hemoglobin 11.8L, Lymphocytes # (Auto) , Lymphocytes (%) (Auto) , Magnesium Level 2.0, Mean Corpuscular Hemoglobin 31.7, Mean Corpuscular Hemoglobin Concent 35.8, Mean Corpuscular Volume 89, Mean Platelet Volume 10.9H, Monocytes # (Auto) , Monocytes (%) (Auto) , Neutrophils # (Auto) , Neutrophils (%) (Auto) , Phosphorus Level 3.7#, Platelet Count 109L, Potassium Level 3.6, Red Blood Count 3.72L, Red Cell Distribution Width 12.8, Sodium Level 132L, White Blood Count 3.82L, Absolute Band Neutrophils 0.1, Atypical Lymphocytes 3, Band Neutrophils % 2, Basophils # (Manual) 0.0, Basophils % (Manual) 0, Blood Morphology Comment Normal, Differential Total Cells Counted 100, Eosinophils # 0.2, Eosinophils % (Manual) 5H, Lymphocytes # 0.9, Lymphocytes % (Manual) 23, Metamyelocytes % 0, Monocytes # 0.3, Monocytes % (Manual) 11, Neutrophils # 2.1, Segmented Neutrophils % 56, Serum Osmolality 271L 11/02/16 05:30: Albumin 4.1, Anion Gap 15.1H, Basophils # (Auto) 0.1, Basophils (%) (Auto) 1, Blood Urea Nitrogen 9, Calcium Level 9.3, Carbon Dioxide Level 27, Chloride Level 99, Creatinine 0.67L, Eosinophils # (Auto) 0.2, Eosinophils (%) (Auto) 5H , Estimat Glomerular Filtration Rate 143.6, Estimated GFR (Non- 118.7, Glucose Level 148H, Hematocrit 35.10L, Hemoglobin 12.2L, Lymphocytes # ( Auto) 1.0, Lymphocytes (%) (Auto) 22, Magnesium Level 1.8, Mean Corpuscular Hemoglobin 30.8, Mean Corpuscular Hemoglobin Concent 34.8, Mean Corpuscular Volume 89, Mean Platelet Volume 10.2H, Monocytes # (Auto) 0.6, Monocytes (%) ( Auto) 13H, Neutrophils # (Auto) 2.6, Neutrophils (%) (Auto) 58, Phosphorus Level 4.2, Platelet Count 137L, Potassium Level 4.1, Red Blood Count 3.96L, Red Cell Distribution Width 12.8, Sodium Level 137, White Blood Count 4.42 MICRO 10/30 Resp PCR Panel negative 10/29 Blood culture Gram negative, anaerobic organism 10/29 Influenza A/B Negative 10/29 Mycoplasma PENDING IMAGING 10/30/16 CHEST PA/LAT (2 VIEW)* Indication: Shortness of breath PA and lateral chest Heart size and pulmonary vascular normal. Lungs are clear. There are no effusions or pneumothoraces. Impression: Negative chest 10/29/16 CHEST 1 VIEW, AP/PA ONLY* Indication: Shortness breath. Exam: Portable chest at 2:37 PM Findings: The heart size and pulmonary vascularity are normal. The lungs are clear. There are no effusions or pneumothoraces. Impression: Negative chest. ASSESSMENT Carlos Alberto Goodwin is a 66 year old male admitted from ED 10/29 with SIRS and possible sepsis though source was uncertain. He had fever, chills, increased Parkinsonian tremor, and labs were notable WBC 10 with 90% N and 2% bands. He had hyponatremia, generalized weakness. He has several chronic problems. PLAN * SIRS: Resolved. Blood culture still pending. Repeat CXR after hydration was negative. Empiric ceftriaxone, azithromycin. Transitioned to ertapenem on the basis of blood culture. * Acute Respiratory Distress: Resolved. Mild on admit, subjective. Oxygen protocol. IS. Albuterol PRN. * Viral Syndrome: Tentative diagnosis for fever/chills and malaise. Considered pneumonia but imaging makes this much less likely. Check respiratory PCR panel. Empiric antibiotics as above pending blood culture result. * Bacteremia: One of two cultures positive as noted. Speciation still pending. Empiric ceftriaxone given on admit. Fluconazole added 10/31 for concern of yeast on culture smear but stopped 11/02 on the basis of culture prelim. Transitioned to ertapenem pending final culture result. New cultures 11/03. * Dehydration: Resolved. On the basis of labs, exam. NS bolus in ED. Additional liter maintenance. I&O, daily weight. * Fever: Resolved. Acetaminophen, ibuprofen. * Anxiety: Improved. Aggravated by current illness. Lorazepam PRN stopped 11/02 but he got anxious in the evening so permitted PO PRN dose. * HTN, Uncontrolled: Has been on home dose carvedilol but BP trend has been high. Added lisinopril 11/02. * Constipation: Resolved. Encouraged use of PRN bowel regimen. * F/E/N: Diabetic diet. IVF as above. Peripheral IV. * Prophylaxis: Enoxaparin * Code Status: Full * Dispo: Inpatient. Discharge deferred pending culture results. CHRONIC ISSUES * CHAIM: Home CPAP. * HLD: Atorvastatin, fish oil * Parkinson's Disease: Carbidopa/levodopa/entacapone, amantadine, pramipexole, primidone * Diabetes Mellitus Type II: Metformin, sliding scale. ENE LEE MD Nov 03, 2016 11:10
[2016-11-03 11:20] VITALS: BP 194/109
[2016-11-03] MEDS: ERTAPENEM 1 GM in SODIUM CHLORIDE 50 ML IV SCH (11:49)
--- NOTE | 2016-11-03 13:13 | PT Daily Note Inpatient (E) ---
PT Daily Treatment Service Date/Time 11/03/16, 13:07 Medical Diagnosis: (1) Fever ICD Code: R50.9 Physical Therapy: (1) HTN (hypertension) (2) Fever ICD Code: R50.9 (3) SIRS (systemic inflammatory response syndrome) ICD Code: R65.10 Precaution/Isolation: Standard Precautions Resuscitation Status: Full Code Fall Level: High Risk 51 or greater Subjective Nursing stated patient's BP was lower this morning than it had been yesterday. BP in the 150's systolically. The patient was resting in recliner with his present in room. Patient is agreeable to participating in therapy session. He notes decreased MEMBRENO but does have c/o neck pain he relates to neck positioning when sleeping. Patient also requests to ambulate with shoes on this date. Oxygen Delivery: Room air O2 liters/minute: 0 Transfers Sit-Stand from bed: Contact Guard Assist Stand-Sit: Contact Guard Assist Gait Ambulation: Contact Guard Assist Distance Walked: 310 feet with FWW verbal cues for upright posture Patient has a tendency to have fluctuating gait speed, PT encouraged patient to ambulate with steady gait pattern to insure improved foot clearance. Patient's BP following ambulation this date 194/109. Education/Plan Education Education Needs: Use of Devices/Equipment (PT educated the patient and his on extended shoe horns and elastic shoe laces to improve patient's independence with donning/doffing shoes/socks.) Nurse and physician notified of elevated BP following ambulation, however the patient was asymptomatic. Assessment Patient ambulated without difficulty however has significant HTN following. Recommend checking with nursing staff and continuing to monitor BP prior to and during ambulation/increased activity. Plan Continue with current plan of care, monitoring BP. Patient will be seen: Daily Wednesday-Wednesday Discharge Recommendations: Caregiver support Coding Time In: 1046 Time Out: 1105 Total Minutes: 19 Charges: [id number] Gait Training 15 SYDNIE Trujillo PT Nov 03, 2016 13:13
--- NOTE | 2016-11-03 14:28 | PT Daily Note Inpatient (E) ---
PT Daily Treatment Service Date/Time 11/03/16, 14:21 Medical Diagnosis: (1) Fever ICD Code: R50.9 Physical Therapy: (1) HTN (hypertension) (2) Fever ICD Code: R50.9 (3) SIRS (systemic inflammatory response syndrome) ICD Code: R65.10 Precaution/Isolation: Standard Precautions Resuscitation Status: Full Code Fall Level: High Risk 51 or greater Subjective nsg not able to get pt's BP after several attempts due to increased tremors, pt agrees to seated exercises, pt meds for tremors are not until 1500 today Pain Level: 0 Oxygen Delivery: Room air O2 liters/minute: 0 Treatments Sit, Stand, Supine: Long Sitting (& sitting) Extremity: Both Lower Extremity Assistance: AROM Repetition: 1 x 10 (rest breaks in between each exercise 2* fatigue from tremors) Exercise: AP, Heel Slides, Hip Abduction, SLR, LAQ, Hip Flexion, TR, HR, External Rotation, Internal Rotation Gait held gait, not able to obtain BP 2* increased tremors Education/Plan Assessment pt with increased tremors making it difficult to perform exercises without several rest breaks, increased fatigue after treatment, fan provided to help cool pt off Safety Awareness: Impaired Response to Treatment: No Change Plan Cont POC Patient will be seen: Daily Wednesday-Wednesday Discharge Recommendations: Caregiver support Coding Time In: 1404 Time Out: 1421 Total Minutes: 17 Charges: [id number] Exercise Therp JOSE Soto PTA Nov 03, 2016 14:28
[2016-11-03 15:25] VITALS: BP 180/98
--- NOTE | 2016-11-03 17:23 | OT Daily Note Inpatient (E) ---
OT Daily Treatment Service Date/Time 11/03/16, 17:23 Primary Diagnosis: (1) Fever ICD Code: R50.9 Treatment Diagnosis: (1) Weakness ICD Code: R53.1 Onset Date: 10/29/16 Start of Care Date: Oct 30, 2016 Precaution/Isolation: Standard Precautions Fall Level: High Risk 51 or greater Resuscitation Status: Full Code Pt reports he does not know what is going on in terms of his blood pressure. States it has been really high today and just does not feel like himself. Pain Level: 0 Oxygen Needed: Room air O2 liters/minute: 0 Current Function Assessment Cognition Attention: Intact Memory: Intact Safety/Judgement: Impaired Visual/Perceptual Skills Hearing: Intact Hand Dominance Hand Dominance: Right Toileting Pt in bathroom upon therapist arrival. In bathroom, pt leaned over to begin wiping self. Noted- pt required verbal cueing to continue breathing while completing tasks. When prompting by therapist, pt reports feeling a little unsteady on feet. Had pt sit down on toilet to take a rest break. With minimal assist in standing, therapist completed toilet hygiene for thorough cleaning. Required maximum assistance to manage underwear. Pt completed functional mobility with use of FWW and CGA to chair. Educated on breathing techniques following task. Pt reports he just does not feel like himself and something is off. Had HOME HEALTH ASSISTANT aide take pt's blood pressure following task. With manual BP cuff, HOME HEALTH ASSISTANT aide had pt's BP at 220/130. Aid reports it has been running in the 200s. No further activity secondary to patient's high blood pressure. Pt in sitting with call light in place following tasks. Noted- pt still demonstrated increased tremoring after administration of medication. Education/Assessment Rehabilitation Potential: Good Pt demonstrated difficulty with toileting this date requiring assistance for toilet hygiene and brief management. Demonstrated high blood pressure following bathroom task. POC Plan of Care Problems Identified: Activity Tolerance, ADLs, Balance, Lt UE Strength, Rt UE Strength, Safety Awareness Plan: Evaluation-OT, ADL/Self Care Management, Therapy Exercises, Therapy Activities, Pt/Family/Staff Education Frequency of OT: Five times weekly Duration of OT: Other (5 days ) Therapy to Include: ADL training, Balance with ADLs, Pt/family education, Therapeutic activities, UE strengthing Discharge Recommendations: Caregiver support Pt. Aware of Dx and Prognosis: Yes Pt. Aware of Risk & Benefit: Yes Goals: Discussed with patient, Discussed with family Short Term Goals STG Time Frame: 3 Days Will Perform Grooming: CGA Will Dress Lower Extremity: With Setup/SBA Will do Bathing: With Min Assistance Will do Toileting: CGA STG #1 Pt will participate in 15 min of ther-ex with 4 or less rest breaks. Piecer Up Goals LTG Time Frame: 5 Days Will Dress Upper Extremity: Independently Will Dress Lower Extremity: Independently Will do Tub/Shower Transfer: Independently Will Bathe Self: With Setup/SBA Will do Toilet Transfers: Independently Will do Toilieting: Independently CPT/G Codes Time In: 15:27 Time Out: 15:44 Total Minutes: 17 (11/03 ADL) CPT Codes: 21185 ADL EA (11/03 ADL) CECILY PATEL OT Nov 03, 2016 17:23
[2016-11-03 19:59] VITALS: BP 167/71
[2016-11-03] MEDS: PRIMIDONE 50 MG PO SCH (20:02)
[2016-11-03] MEDS ORDERED: ALBUTEROL/IPRATROPIUM 3MG-0.5MG/3ML (DUONEB) NEB VIAL INH ONE (22:45)
[2016-11-04] VITALS (7 sets, daily range): BP systolic 149–189; BP diastolic 85–100
[2016-11-04] MEDS: INSULIN LISPRO 1 UNIT/0.01 ML (HUMALOG) DOSE SC SCH ×4 (06:24→21:00)
[2016-11-04] MEDS: HOME MEDICATION PO SCH ×4 (06:42→19:19)
[2016-11-04] MEDS: PRAMIPEXOLE 0.5 MG PO SCH ×3 (06:42→17:47)
[2016-11-04] MEDS: AMANTADINE 100 MG (SYMMETREL) CAP PO SCH ×2 (06:42→11:11)
[2016-11-04] MEDS: MULTIVITAMIN W/MINERALS (THERAGRAN M) TABLET PO SCH (08:46)
[2016-11-04] MEDS: ASPIRIN 81 MG CHEW (CHILDREN'S ASA) PO SCH (08:46)
[2016-11-04] MEDS: lisINopril 20 MG (PRINIVIL) TABLET PO SCH (08:46)
[2016-11-04] MEDS: ATORVASTATIN 10 MG (LIPITOR) TABLET PO SCH (08:46)
[2016-11-04] MEDS: CYANOCOBALAMIN 1000 MCG (VITAMIN B-12) TABLET PO SCH (08:46)
[2016-11-04] MEDS: OMEGA-3 ACID ETHYL ESTERS 1 GM (LOVAZA) CAPSULE PO SCH (08:46)
[2016-11-04] MEDS: CARVEDILOL 25 MG (COREG) TABLET PO SCH ×2 (08:46→17:47)
[2016-11-04] MEDS: ENOXAPARIN 40 MG/0.4 ML (LOVENOX) SYR SC SCH (08:48)
[2016-11-04] MEDS: SODIUM CHLORIDE FLUSH 3 ML SYR IV PRN (08:48)
--- NOTE | 2016-11-04 10:40 | PT Daily Note Inpatient (E) ---
PT Daily Treatment Service Date/Time 11/04/16, 10:36 Medical Diagnosis: (1) Fever ICD Code: R50.9 Physical Therapy: (1) HTN (hypertension) (2) Fever ICD Code: R50.9 (3) SIRS (systemic inflammatory response syndrome) ICD Code: R65.10 Precaution/Isolation: Standard Precautions Resuscitation Status: Full Code Fall Level: High Risk 51 or greater Subjective pt on toilet on arrival, agrees to PT, states "I was doing better this morning, walked to and from the shower and now my stomach doesn't feel right" Pain Level: 0 Oxygen Delivery: Room air Treatments Sit, Stand, Supine: Long Sitting (& sitting) Extremity: Both Lower Extremity Assistance: AROM Repetition: 1 x 10 Exercise: AP, Heel Slides, Hip Abduction, SLR, LAQ, Hip Flexion, External Rotation, Internal Rotation Transfers Sit-Stand from bed: Supervision or setup Stand-Sit: Supervision or setup Gait Ambulation: Contact Guard Assist Distance Walked: 300' bp after amb 176/69 Weight Bearing Status: Full Assistive Device: FWW Gait Assist: Min Assist/Contact Guard Gait Description: Safe w/ Assistive Device, Flexed Trunk Gait Training: Limitations: Fatigue Education/Plan Assessment tolerates tx well, endurance improving Safety Awareness: Intact Response to Treatment: Improving Plan Cont POC Patient will be seen: Daily Wednesday-Wednesday Discharge Recommendations: Caregiver support Coding Time In: 1011 Time Out: 1036 Total Minutes: 25 Charges: [id number] Exercise Therp JOSE Soto PTA Nov 04, 2016 10:40
[2016-11-04] MEDS: SODIUM CHLORIDE FLUSH 10 ML SYR IV PRN (11:10)
[2016-11-04] MEDS: ERTAPENEM 1 GM in SODIUM CHLORIDE 50 ML IV SCH (11:10)
--- NOTE | 2016-11-04 11:21 | Progress Note (E) ---
Progress Note SUBJECTIVE No reported issues overnight. Did take lorazepam again at bedtime. Still no update on blood culture result. Lab calling out to reference lab. This AM, awake , interactive. Working on his computer. OBJECTIVE Vital Signs Date Time Temp Pulse Resp B/P Pulse Ox O2 Delivery O2 Flow Rate FiO2 11/04/16 10:40 11/04/16 08:02 97.5 65 18 185/95 94 Room air I & O 11/03/16 11/04/16 Cumulative From/Thru 19:00 07:00 10/29/16 13:58 - 11/04/16 06:06 Intake Total 250 ml 546 ml 6815 ml Output Total 800 ml 1325 ml 72707 ml Balance -550 ml -779 ml -6585 ml GEN: Awake, alert, interactive, oriented. NAD. HEENT: EOMI, clear sclerae, moist oral mucosa. CV: RRR S1 S2 normal with no murmur LUNGS: CTA B with diminished bases. No R/R/W. ABD: Soft NT/ND with hyperactive bowel sounds. EXTR: Trace ankle edema. INTEG: No rash. Warm, dry, well, perfused. NEURO: Generalized weakness but improved. Tremor in arms and legs but improved since admission, now at baseline. Lab-Past 14 Days, 35 Results 10/29/16 14:10: Absolute Band Neutrophils 0.2, Acinetobacter baumannii (PCR) Negative, Alanine Aminotransferase (ALT/SGPT) 31, Albumin 4.6, Albumin/Globulin Ratio 1.703, Alkaline Phosphatase 97, Anion Gap 18.5H, Antimicrobial Susceptibility , Aspartate Amino Transf (AST/SGOT) 42H, BUN/Creatinine Ratio 17, Band Neutrophils % 2, Basophils # (Auto) , Basophils # (Manual) 0.0, Basophils % ( Manual) 0, Basophils (%) (Auto) , Blood Morphology Comment Normal, Blood Urea Nitrogen 13, Calcium Level 9.3, Calcium/Ionized Calcium Ratio 4.0, Calculated Osmolality 251L, Sharmila albicans (PCR) Negative, Sharmila glabrata (PCR) Negative, Sharmila krusei (PCR) Negative, Sharmila parapsilosis (PCR) Negative, Sharmila tropicalis (PCR) Negative, Carbon Dioxide Level 22, Chloride Level 92L, Creatinine 0.77L, Differential Total Cells Counted 100, Enterobacter cloacae complex (PCR) Negative, Enterobacteriaceae species (PCR) Negative, Enterococcus species (PCR) Negative, Eosinophils # 0.0, Eosinophils # (Auto) , Eosinophils % (Manual) 0, Eosinophils (%) (Auto) , Escherichia coli (PCR) Negative, Estimat Glomerular Filtration Rate 122.3, Estimated GFR (Non- 101.1, Glucose Level 150H, Group B Streptococcus (PCR) Negative, Haemophilis influenzae (PCR) Negative, Hematocrit 36.80L, Hemoglobin 12.8L, KPC-Carbapenem Resistance Gene Negative, Klebsiella oxytoca (PCR) Negative, Klebsiella pneumoniae (PCR) Negative, Lactic Acid Level 2.1, Listeria monocytogenes (PCR) Negative, Lymphocytes # 0.5, Lymphocytes # (Auto) , Lymphocytes % (Manual) 5L, Lymphocytes (%) (Auto) , Mean Corpuscular Hemoglobin 30.9, Mean Corpuscular Hemoglobin Concent 34.8, Mean Corpuscular Volume 89, Mean Platelet Volume 10.5H , Metamyelocytes % 0, Monocytes # 0.3, Monocytes # (Auto) , Monocytes % (Manual ) 3, Monocytes (%) (Auto) , UM-Pky-L-Type Natriuretic Peptide 814H, Neisseria meningitidis (PCR) Negative, Neutrophils # 9.0, Neutrophils # (Auto) , Neutrophils (%) (Auto) , Platelet Count 118L, Potassium Level 4.2, Proteus species (PCR) Negative, Pseudomonas aeruginosa (PCR) Negative, Red Blood Count 4.14L, Red Cell Distribution Width 12.6, Segmented Neutrophils % 90H, Serratia marcescens (PCR) Negative, Sodium Level 128L, Staphylococcus aureus (PCR)(LAB) Negative, Staphylococcus species (PCR) Negative, Streptococcus pneumoniae (PCR) Negative, Streptococcus pyogenes (TEM-PCR) Negative, Streptococcus species (PCR ) Negative, Total Bilirubin 0.8, Total Protein 7.3, Anya/B-Vancomycin Resistance Genes Negative, White Blood Count 10.00, mecA-Methicillin Resistance Gene Negative 10/29/16 14:15: Urine Bacteria None seen, Urine Bilirubin Negative, Urine Blood Negative, Urine Clarity Clear, Urine Collection Type Clean catch, Urine Color [place], Urine Glucose (UA) Negative, Urine Ketones TraceH, Urine Leukocyte Esterase Negative, Urine Microscopic RBC 0-2, Urine Mucus 3+H, Urine Nitrite Negative, Urine Protein 2+H, Urine Specific [place] 1.020, Urine Squamous Epithelial Cells 2-5, Urine Urobilinogen 0.2, Urine WBC None seen, Urine pH 7.0, Volume Urine Centrifuged 12 ml 10/29/16 15:05: Influenza Virus Type A Antibody Negative, Influenza Virus Type B Antibody Negative 10/29/16 15:12: Mycoplasma pneumoniae IgM Antibody 0.63 10/30/16 05:30: Absolute Band Neutrophils 0.1, Albumin 4.0, Anion Gap 13.9, Band Neutrophils % 2 , Basophils # (Auto) , Basophils # (Manual) 0.0, Basophils % (Manual) 0, Basophils (%) (Auto) , Blood Morphology Comment Normal, Blood Urea Nitrogen 13, Calcium Level 8.5L, Carbon Dioxide Level 24, Chloride Level 94L, Creatinine 0.73L, Differential Total Cells Counted 100, Eosinophils # 0.0, Eosinophils # ( Auto) , Eosinophils % (Manual) 0, Eosinophils (%) (Auto) , Estimat Glomerular Filtration Rate 130.1, Estimated GFR (Non- 107.5, Glucose Level 166H, Hematocrit 34.00L, Hemoglobin 12.0L, Lymphocytes # 0.8, Lymphocytes # ( Auto) , Lymphocytes % (Manual) 13L, Lymphocytes (%) (Auto) , Mean Corpuscular Hemoglobin 31.7, Mean Corpuscular Hemoglobin Concent 35.3, Mean Corpuscular Volume 90, Mean Platelet Volume 10.3H, Metamyelocytes % 0, Monocytes # 0.1, Monocytes # (Auto) , Monocytes % (Manual) 2L, Monocytes (%) (Auto) , Neutrophils # 5.1, Neutrophils # (Auto) , Neutrophils (%) (Auto) , Phosphorus Level 2.6, Platelet Count 101L, Polychromasia , Potassium Level 3.9, Red Blood Count 3.79L, Red Cell Distribution Width 13.0, Segmented Neutrophils % 83H, Sodium Level 128L, White Blood Count 6.16 10/30/16 08:56: Adenovirus (PCR) Negative, Bordetella parapertussis DNA (PCR) Negative, Chlamydophila pneumoniae (PCR) Negative, Coronavirus Type 229E (PCR) Negative, Coronavirus Type HKU1 (PCR) Negative, Coronavirus Type NL63 (PCR) Negative, Coronavirus Type OC43 (PCR) Negative, Enterovirus/Rhinovirus (PCR) Negative, Human Metapneumovirus (PCR) Negative, Influenza Type A (H1) (PCR) Negative, Influenza Virus Type B (PCR) Negative, Mycoplasma pneumoniae (PCR) Negative, Parainfluenza Type 1 (PCR) Negative, Parainfluenza Type 2 (PCR) Negative, Parainfluenza Type 3 (PCR) Negative, Parainfluenza Type 4 (PCR) Negative, Respiratory Syncytial Virus (PCR) Negative 10/30/16 10:00: Urine Random Creatinine 231H, Urine Random Sodium 88 10/30/16 10:50: Lab Scanned Report REFERENCE LABS 10/31/16 06:29: Albumin 4.1, Anion Gap 13.7, Basophils # (Auto) 0.0, Basophils (%) (Auto) 0, Blood Urea Nitrogen 10, Calcium Level 8.7L, Carbon Dioxide Level 24, Chloride Level 95L, Creatinine 0.61L, Eosinophils # (Auto) 0.1, Eosinophils (%) (Auto) 1 , Estimat Glomerular Filtration Rate 160.0, Estimated GFR (Non- 132.3, Glucose Level 151H, Hematocrit 34.80L, Hemoglobin 12.2L, Hemoglobin A1c 7.1H, Lymphocytes # (Auto) 0.5, Lymphocytes (%) (Auto) 10L, Magnesium Level 1.8 , Mean Corpuscular Hemoglobin 30.9, Mean Corpuscular Hemoglobin Concent 35.1, Mean Corpuscular Volume 88, Mean Platelet Volume 10.5H, Monocytes # (Auto) 0.6, Monocytes (%) (Auto) 11, Neutrophils # (Auto) 4.3, Neutrophils (%) (Auto) 77H, Phosphorus Level 2.8, Platelet Count 106L, Potassium Level 3.8, Red Blood Count 3.95L, Red Cell Distribution Width 12.6, Sodium Level 128L, White Blood Count 5.51 11/01/16 03:50: Urine Osmolality [Pending] 11/01/16 05:20: Albumin 3.9, Anion Gap 14.4, Basophils # (Auto) , Basophils (%) (Auto) , Blood Urea Nitrogen 10, Calcium Level 8.7L, Carbon Dioxide Level 23, Chloride Level 98 , Creatinine 0.61L, Eosinophils # (Auto) , Eosinophils (%) (Auto) , Estimat Glomerular Filtration Rate 160.0, Estimated GFR (Non- 132.3, Glucose Level 134H, Hematocrit 33.00L, Hemoglobin 11.8L, Lymphocytes # (Auto) , Lymphocytes (%) (Auto) , Magnesium Level 2.0, Mean Corpuscular Hemoglobin 31.7, Mean Corpuscular Hemoglobin Concent 35.8, Mean Corpuscular Volume 89, Mean Platelet Volume 10.9H, Monocytes # (Auto) , Monocytes (%) (Auto) , Neutrophils # (Auto) , Neutrophils (%) (Auto) , Phosphorus Level 3.7#, Platelet Count 109L, Potassium Level 3.6, Red Blood Count 3.72L, Red Cell Distribution Width 12.8, Sodium Level 132L, White Blood Count 3.82L, Absolute Band Neutrophils 0.1, Atypical Lymphocytes 3, Band Neutrophils % 2, Basophils # (Manual) 0.0, Basophils % (Manual) 0, Blood Morphology Comment Normal, Differential Total Cells Counted 100, Eosinophils # 0.2, Eosinophils % (Manual) 5H, Lymphocytes # 0.9, Lymphocytes % (Manual) 23, Metamyelocytes % 0, Monocytes # 0.3, Monocytes % (Manual) 11, Neutrophils # 2.1, Segmented Neutrophils % 56, Serum Osmolality 271L 11/02/16 05:30: Albumin 4.1, Anion Gap 15.1H, Basophils # (Auto) 0.1, Basophils (%) (Auto) 1, Blood Urea Nitrogen 9, Calcium Level 9.3, Carbon Dioxide Level 27, Chloride Level 99, Creatinine 0.67L, Eosinophils # (Auto) 0.2, Eosinophils (%) (Auto) 5H , Estimat Glomerular Filtration Rate 143.6, Estimated GFR (Non- 118.7, Glucose Level 148H, Hematocrit 35.10L, Hemoglobin 12.2L, Lymphocytes # ( Auto) 1.0, Lymphocytes (%) (Auto) 22, Magnesium Level 1.8, Mean Corpuscular Hemoglobin 30.8, Mean Corpuscular Hemoglobin Concent 34.8, Mean Corpuscular Volume 89, Mean Platelet Volume 10.2H, Monocytes # (Auto) 0.6, Monocytes (%) ( Auto) 13H, Neutrophils # (Auto) 2.6, Neutrophils (%) (Auto) 58, Phosphorus Level 4.2, Platelet Count 137L, Potassium Level 4.1, Red Blood Count 3.96L, Red Cell Distribution Width 12.8, Sodium Level 137, White Blood Count 4.42 MICRO 11/03 Blood culture PENDING 10/30 Resp PCR Panel negative 10/29 Blood culture Gram negative, anaerobic organism 10/29 Influenza A/B Negative 10/29 Mycoplasma PENDING IMAGING 10/30/16 CHEST PA/LAT (2 VIEW)* Indication: Shortness of breath PA and lateral chest Heart size and pulmonary vascular normal. Lungs are clear. There are no effusions or pneumothoraces. Impression: Negative chest 10/29/16 CHEST 1 VIEW, AP/PA ONLY* Indication: Shortness breath. Exam: Portable chest at 2:37 PM Findings: The heart size and pulmonary vascularity are normal. The lungs are clear. There are no effusions or pneumothoraces. Impression: Negative chest. ASSESSMENT Carlos Alberto Goodwin is a 66 year old male admitted from ED 10/29 with SIRS and possible sepsis though source was uncertain. He had fever, chills, increased Parkinsonian tremor, and labs were notable WBC 10 with 90% N and 2% bands. He had hyponatremia, generalized weakness. He has several chronic problems. PLAN * SIRS: Resolved. Blood culture still pending. Repeat CXR after hydration was negative. Empiric ceftriaxone, azithromycin. Transitioned to ertapenem on the basis of blood culture. * Acute Respiratory Distress: Resolved. Mild on admit, subjective. Oxygen protocol. IS. Albuterol PRN. * Viral Syndrome: Tentative diagnosis for fever/chills and malaise. Considered pneumonia but imaging makes this much less likely. Check respiratory PCR panel. Empiric antibiotics as above pending blood culture result. * Bacteremia: One of two cultures positive as noted. Speciation still pending. Empiric ceftriaxone given on admit. Fluconazole added 10/31 for concern of yeast on culture smear but stopped 11/02 on the basis of culture prelim. Transitioned to ertapenem pending final culture result. New cultures 11/03, also pending. * Dehydration: Resolved. On the basis of labs, exam. NS bolus in ED. Additional liter maintenance. I&O, daily weight. * Fever: Resolved. Acetaminophen, ibuprofen. * Anxiety: Improved. Aggravated by current illness. Lorazepam PRN stopped 11/02 but he got anxious in the evening so permitted PO PRN dose. * HTN, Uncontrolled: Has been on home dose carvedilol but BP trend has been high. Added lisinopril 11/02. * Constipation: Resolved. Encouraged use of PRN bowel regimen. * F/E/N: Diabetic diet. IVF as above. Peripheral IV. * Prophylaxis: Enoxaparin * Code Status: Full * Dispo: Inpatient. Discharge deferred pending culture results. Hoping for discharge home today if possible. CHRONIC ISSUES * CHAIM: Home CPAP. * HLD: Atorvastatin, fish oil * Parkinson's Disease: Carbidopa/levodopa/entacapone, amantadine, pramipexole, primidone * Diabetes Mellitus Type II: Metformin, sliding scale. ENE LEE MD Nov 04, 2016 11:21
--- NOTE | 2016-11-04 14:18 | PT Daily Note Inpatient (E) ---
PT Daily Treatment Service Date/Time 11/04/16, 14:14 Medical Diagnosis: (1) Fever ICD Code: R50.9 Physical Therapy: (1) HTN (hypertension) (2) Fever ICD Code: R50.9 (3) SIRS (systemic inflammatory response syndrome) ICD Code: R65.10 Precaution/Isolation: Standard Precautions Resuscitation Status: Full Code Fall Level: High Risk 51 or greater Subjective pt agrees to split treatment, no c/o, reports pt is above baseline Pain Level: 0 Oxygen Delivery: Room air Treatments Sit, Stand, Supine: Standing Extremity: Both Lower Extremity Assistance: AROM Repetition: 1 x 10 Exercise: Hip Abduction, Hip Flexion, Hip Extension, TR, HR Transfers Sit-Stand from bed: Supervision or setup Stand-Sit: Supervision or setup Gait Ambulation: Supervision or setup Distance Walked: 500', 80' 500' with FWW, no concerns; 80' no AD, no LOB Weight Bearing Status: Full Assistive Device: FWW (FWW for 500', no AD for 80') Gait Assist: Supervision Required Gait Description: Normal:No Sig. Deviation, Safe w/ Assistive Device Education/Plan Assessment elian tx well, reports pt is above baseline Safety Awareness: Intact Response to Treatment: Improving Plan Cont POC Patient will be seen: Daily Wednesday-Wednesday Discharge Recommendations: Caregiver support Coding Time In: 1349 Time Out: 1412 Total Minutes: 23 Charges: 96819 Exercise Therp JOSE Soto PTA Nov 04, 2016 14:18
--- NOTE | 2016-11-04 17:46 | OT Daily Note Inpatient (E) ---
OT Daily Treatment Service Date/Time 11/04/16, 17:39 Primary Diagnosis: (1) Fever ICD Code: R50.9 Treatment Diagnosis: (1) Weakness ICD Code: R53.1 Onset Date: 10/29/16 Start of Care Date: Oct 30, 2016 Precaution/Isolation: Standard Precautions Fall Level: High Risk 51 or greater Resuscitation Status: Full Code Pt reports feeling much better today than yesterday. Was up walking around with physical therapy. States he was able to go to the bathroom multiple times today with no difficulty. Pt states he is ready to go home. Pain Level: 0 Oxygen Needed: Room air Current Function Assessment Mental Status Mental Status: Alert Cognition Attention: Intact Memory: Intact Safety/Judgement: Impaired Visual/Perceptual Skills Hearing: Intact Hand Dominance Hand Dominance: Right Dressing Comment Therapist educated and demonstrated use of adaptive dressing equipment to increase ease of lower body dressing. Therapist discussed purpose and demonstrated use of flexible sock aid, long handled shoe horn and dressing stick. Following demonstration, pt trialed each items. Able to doff socks using dressing stick with minimal assistance. With practice pt able to improve independence. Required minimal assistance using sock aid and minimal assistance with long handled shoe horn. Noted- pt tremoring during tasks, but able to complete with increased time. Additionally discussed with and pt about elastic shoe laces to ease tying shoes. Pt and verbalized understanding. Pt reports he really liked the equipment. Educated on where to obtain and helped find items online. Treatments Strengthening Exercise Upper Extremity Strength Exerc : Comment In sitting, pt engaged in BUE strengthening exercises with use of green theraband. Completed 4 x 15 exercises to increase strength for functional transfers and ADLs. Following demonstration of exercise, pt able to complete with proper technique. Pt demonstrated no noted SOB following tasks. Education/Assessment Education Provided: Assistive equipment (Dressing equipment.) Treatment Tolerance: Carlos Enrique trmnt w/o complaints Rehabilitation Potential: Good Educated and demonstrated adaptive dressing equipment to ease task for pt. Pt very interested in items and able to complete with minimal assistance this date. POC Plan of Care Problems Identified: Activity Tolerance, ADLs, Balance, Lt UE Strength, Rt UE Strength, Safety Awareness Plan: Evaluation-OT, ADL/Self Care Management, Therapy Exercises, Therapy Activities, Pt/Family/Staff Education Frequency of OT: Five times weekly Duration of OT: Other (5 days ) Therapy to Include: ADL training, Balance with ADLs, Pt/family education, Therapeutic activities, UE strengthing Discharge Recommendations: Caregiver support Pt. Aware of Dx and Prognosis: Yes Pt. Aware of Risk & Benefit: Yes Goals: Discussed with patient, Discussed with family Short Term Goals STG Time Frame: 3 Days Will Perform Grooming: CGA Will Dress Lower Extremity: With Setup/SBA Will do Bathing: With Min Assistance Will do Toileting: CGA STG #1 Pt will participate in 15 min of ther-ex with 4 or less rest breaks. PROGRESS. 2 rest breaks. Fdc Goals LTG Time Frame: 5 Days Will Dress Upper Extremity: Independently Will Dress Lower Extremity: Independently Will do Tub/Shower Transfer: Independently Will Bathe Self: With Setup/SBA Will do Toilet Transfers: Independently Will do Toilieting: Independently CPT/G Codes Time In: 15:32 Time Out: 16:00 Total Minutes: 28 (10/27 TE, 11/04 ADL) CPT Codes: 63665 Exercise Ther (10/27), 29383 ADL EA (11/04) CECILY PATEL OT Nov 04, 2016 17:46
[2016-11-04] MEDS: PRIMIDONE 50 MG PO SCH (21:29)
[2016-11-05 00:20] VITALS: BP 206/90
[2016-11-05] MEDS: LORazepam 1 MG (ATIVAN) TABLET PO PRN (00:31)
[2016-11-05 02:40] VITALS: BP 168/94
[2016-11-05] MEDS: INSULIN LISPRO 1 UNIT/0.01 ML (HUMALOG) DOSE SC SCH ×2 (05:37→11:30)
[2016-11-05 05:47] VITALS: BP 157/81
[2016-11-05] MEDS: PRAMIPEXOLE 0.5 MG PO SCH ×2 (06:40→11:35)
[2016-11-05] MEDS: AMANTADINE 100 MG (SYMMETREL) CAP PO SCH ×2 (06:40→11:35)
[2016-11-05] MEDS: HOME MEDICATION PO SCH ×3 (06:41→15:20)
[2016-11-05 08:15] VITALS: BP 180/70
[2016-11-05] MEDS: MULTIVITAMIN W/MINERALS (THERAGRAN M) TABLET PO SCH (08:20)
[2016-11-05] MEDS: CARVEDILOL 25 MG (COREG) TABLET PO SCH (08:20)
[2016-11-05] MEDS: ENOXAPARIN 40 MG/0.4 ML (LOVENOX) SYR SC SCH (09:00)
[2016-11-05] MEDS: CYANOCOBALAMIN 1000 MCG (VITAMIN B-12) TABLET PO SCH (10:06)
[2016-11-05] MEDS: ATORVASTATIN 10 MG (LIPITOR) TABLET PO SCH (10:06)
[2016-11-05] MEDS: ASPIRIN 81 MG CHEW (CHILDREN'S ASA) PO SCH (10:06)
[2016-11-05] MEDS: lisINopril 20 MG (PRINIVIL) TABLET PO SCH (10:06)
[2016-11-05] MEDS: OMEGA-3 ACID ETHYL ESTERS 1 GM (LOVAZA) CAPSULE PO SCH (10:13)
--- NOTE | 2016-11-05 10:23 | Progress Note (E) ---
Progress Note S: Patient seen and evaluated by Dr. Bills. Patient has been up walking in the halls with his walker. Doing well. He is feeling better. He would like to go home. O: Vital Signs Date Time Temp Pulse Resp B/P Pulse Ox O2 Delivery O2 Flow Rate FiO2 11/05/16 08:15 96.6 66 18 180/70 Room air 11/05/16 05:47 96 11/04/16 10:40 I & O Past 24 hrs 11/05/16 07:00 Intake Total 787 ml Output Total 1825 ml Balance -1038 ml Intake Oral 787 ml Output Urine Total 1825 ml # Bowel Movements 4 Current medications reviewed. PE: GEN: Awake, alert, interactive, oriented. NAD. HEENT: EOMI, clear sclerae, moist oral mucosa. CV: RRR S1 S2 normal with no murmur LUNGS: CTA B with diminished bases. No R/R/W. ABD: Soft NT/ND with hyperactive bowel sounds. EXTR: Trace ankle edema. Laboratory Results Past 24 Hrs 11/05/16 10:00: Urine Osmolality [Pending] MICRO 11/03 Blood culture negative 10/30 Resp PCR Panel negative 10/29 Blood culture Gram negative, anaerobic organism 10/29 Influenza A/B negative 10/29 Mycoplasma negative IMAGING 10/30/16 CHEST Impression: Negative chest 10/29/16 CHEST 1 VIEW, AP/PA ONLY Impression: Negative chest. ASSESSMENT/PLAN SIRS Met with fever, tachycardia, and tachypnea. Resolved. Suspicious of a viral cause. BC's pending. CXR negative. Initially empiric ceftriaxone and azithromycin, transitioned to ertapenem. Treating fevers with acetaminophen. Bacteremia One of two cultures pending. Speciation pending. Fungemia thought to be erroneous, stopped fluconazole, without clinical deterioration. Abx transitioned to ertapenem on 11.03.16. New cultures obtained 11.03.16, continue to monitor. Dyspnea On admission. Improving. Patient has not had any supplemental oxygen needs. Continue IS and prn albuterol. Suspected viral syndrome Given fevers, chills, and malaise. Imaging negative as noted above. Viral PCR negative. Mycoplasma still pending (lab has been contacted). Continue abx noted above. Anxiety Allowing lorazepam prn. Constipation Encourage use of bowel regimen. CHAIM Continue home CPAP. HTN Continued home carvedilol, however pressures have been high. Pulse in the 60' s. Lisinopril added 1.16.17, will increase from 20mg to 30mg daily, as BP continues to be elevated. DLD Continued home atorvastatin and fish oil. Parkinson disease Continued home carbidopa/levodopa/entacapone/amantidine, pramipexole, and primidone. Type II DM Will restart home metformin on discharge. Accu cheks 117-179. SSI. FEN Fluids provided on admission. I/o's and daily weights. Mild hyponatremia resolved. Continue to monitor. Diabetic diet as noted. DVT proph Lovenox. Code status Full code. Dispo Inpatient for above issues. Discussed cultures with lab, after discussion with [facility] labs. The patient's positive blood culture will not likely grow enough to provide speciation. Patient has significantly improved on ertapenem. Patient would like to go home and is willing to return for daily antibiotics to complete 2 weeks of therapy. Updated PCP regarding plan. Will update , when she returns to patient's room. Elizabeth Reese APRN Nov 05, 2016 10:23 HORTENCIA BILLS MD Nov 05, 2016 14:44
[2016-11-05 11:38] VITALS: BP 182/75
[2016-11-05] MEDS: ERTAPENEM 1 GM in SODIUM CHLORIDE 50 ML IV SCH (11:51)
[2016-11-05] MEDS ORDERED: LSNP10T PO (16:03)
--- NOTE | 2016-11-05 16:17 | Discharge Summary (E) ---
Discharge Summary (A) Admit Date/Time Oct 29, 2016 at 16:42 Discharge Date/Time November 05, 2016 Admitting Provider Lam Boogie MD Primary Care Provider Elijah Marks MD Attending Provider Lam Boogie MD, MD discharging physician Consulting Provider Admission Diagnosis SIRS/possible sepsis Acute Respiratory Distress Possible Community Acquired Pneumonia Dehydration Fever Anxiety History and Present Illness Carlos Alberto Goodwin is a 66 year old male admitted from ED 10/29 where he presented from home with complaint of fever, weakness, and inability bear weight. Onset of fever was reportedly last night, up to 103 at one point. In ED, temp 99.0, RR 22, HR 90's, BP 161/69. SpO2 95% on room air initially though he was tachypneic and wheezy initially. WBC was 10.00. Hgb 12.8. Plt 118. 90% N with 2 % B. Serum chemistry showed low sodium at 128 and AG = 14. CXR was fairly unremarkable. UA consistent with dehydration. He was givne albuterol and NS bolus in ED. Because of fever, there was concern of infection and he did meet SIRS criteria. No antibiotics were given in ED. He was admitted for further management. On arrival to unit, awake, alert, interactive, but appears tired and is quite tremulous. He has Parkinson's tremor at baseline but daughter agrees it is worse than usual at present. Patient provides some history but bulk comes from , daughter. says he had onset of illness yesterday morning with MEMBRENO, elevated temp (103 at home). She gave ibuprofen which seemed to help but the fever would return. He has been chilling as will. His blood pressure has been high at home since this illness started. Went to bed around 2029. remained attentive to his needs through the night. This AM, he needed to go to restroom but he was weak and slipped to floor. couldn't get him up. No head trauma with this slide to floor. called EMS who then got him to chair, checked vitals, then brought him to ED. With this illness, no cough. Seemed short of breath last night. Was also more anxious. Had some mild nausea but no reports of vomiting or diarrhea. Still has some MEMBRENO. No reported similar illness. Despite his chronic illnesses, he has not been hospitalized any time recently. Hospital Course and Treatment SIRS Met with fever, tachycardia, and tachypnea. Resolved. Suspicious of a viral cause. BC's noted below. CXR negative, noted above. Initially empiric ceftriaxone and azithromycin, transitioned to ertapenem. Treating fevers with acetaminophen. Bacteremia One culture pending. Speciation pending. Fungemia thought to be erroneous, stopped fluconazole, without clinical deterioration. Repeat cultures from 11.03.16 x 2 have been negative. Abx transitioned to ertapenem on 11.03.16. Dyspnea On admission. Improving. Patient has not had any supplemental oxygen needs. Provided IS and prn albuterol. Suspected viral syndrome Given fevers, chills, and malaise. Imaging negative as noted above. Viral PCR negative. Mycoplasma negative. Continue abx noted above. Anxiety Allowing lorazepam prn. Constipation Encourage use of bowel regimen. CHAIM Continue home CPAP. HTN Continued home carvedilol, however pressures have been high. Pulse in the 60' s. Lisinopril added 11.02.16, will increase from 20mg to 30mg daily, as BP continues to be elevated. DLD Continued home atorvastatin and fish oil. Parkinson disease Continued home carbidopa/levodopa/entacapone/amantidine, pramipexole, and primidone. Type II DM Will restart home metformin on discharge. Accu cheks 117-179. SSI. FEN Fluids provided on admission. I/o's and daily weights. Mild hyponatremia resolved. Continue to monitor. Diabetic diet as noted. DVT proph Lovenox. Code status Full code. Dispo Inpatient for above issues. Discussed cultures with lab, after discussion with [facility] labs. The patient's positive blood culture will not likely grow enough to provide speciation. Repeat cultures have been normal. Patient has significantly improved on ertapenem. Patient would like to go home and is willing to return for daily antibiotics to complete 2 weeks of therapy. Updated PCP regarding plan. Discharge Physicial Exam General--Awake and alert. No distress. HEENT--Normocephalic. MMM in oral cavity. Lungs--CTA B. NLR's. Heart--RRR. No murmurs appreciated. Abdomen--NBS. S/ND/NTTP. Extremities--No edema noted to lower extremities. Radiology/Laboratory Data 10.29.16 CXR Impression: Negative chest. 1.12.17 CXR Impression: Negative chest Microbiology 10/29/16 Blood culture x1 bottle. Only one bottle drawn. Bacterial Isolate Identification PRELIM 11/02/16 10:50 S Anaerobic gram negative bacillus 11/03/16 Blood Culture - Preliminary, Resulted No Growth in 24 hours x 2 cultures. Laboratory Results Past 10Days 10/29/16 14:10: Absolute Band Neutrophils 0.2, Acinetobacter baumannii (PCR) Negative, Alanine Aminotransferase (ALT/SGPT) 31, Albumin 4.6, Albumin/Globulin Ratio 1.703, Alkaline Phosphatase 97, Anion Gap 18.5H, Antimicrobial Susceptibility , Aspartate Amino Transf (AST/SGOT) 42H, BUN/Creatinine Ratio 17, Band Neutrophils % 2, Basophils # (Auto) , Basophils # (Manual) 0.0, Basophils % ( Manual) 0, Basophils (%) (Auto) , Blood Morphology Comment Normal, Blood Urea Nitrogen 13, Calcium Level 9.3, Calcium/Ionized Calcium Ratio 4.0, Calculated Osmolality 251L, Sharmila albicans (PCR) Negative, Sharmila glabrata (PCR) Negative, Sharmila krusei (PCR) Negative, Sharmila parapsilosis (PCR) Negative, Sharmila tropicalis (PCR) Negative, Carbon Dioxide Level 22, Chloride Level 92L, Creatinine 0.77L, Differential Total Cells Counted 100, Enterobacter cloacae complex (PCR) Negative, Enterobacteriaceae species (PCR) Negative, Enterococcus species (PCR) Negative, Eosinophils # 0.0, Eosinophils # (Auto) , Eosinophils % (Manual) 0, Eosinophils (%) (Auto) , Escherichia coli (PCR) Negative, Estimat Glomerular Filtration Rate 122.3, Estimated GFR (Non- 101.1, Glucose Level 150H, Group B Streptococcus (PCR) Negative, Haemophilis influenzae (PCR) Negative, Hematocrit 36.80L, Hemoglobin 12.8L, KPC-Carbapenem Resistance Gene Negative, Klebsiella oxytoca (PCR) Negative, Klebsiella pneumoniae (PCR) Negative, Lactic Acid Level 2.1, Listeria monocytogenes (PCR) Negative, Lymphocytes # 0.5, Lymphocytes # (Auto) , Lymphocytes % (Manual) 5L, Lymphocytes (%) (Auto) , Mean Corpuscular Hemoglobin 30.9, Mean Corpuscular Hemoglobin Concent 34.8, Mean Corpuscular Volume 89, Mean Platelet Volume 10.5H , Metamyelocytes % 0, Monocytes # 0.3, Monocytes # (Auto) , Monocytes % (Manual ) 3, Monocytes (%) (Auto) , IV-Uhs-Z-Type Natriuretic Peptide 814H, Neisseria meningitidis (PCR) Negative, Neutrophils # 9.0, Neutrophils # (Auto) , Neutrophils (%) (Auto) , Platelet Count 118L, Potassium Level 4.2, Proteus species (PCR) Negative, Pseudomonas aeruginosa (PCR) Negative, Red Blood Count 4.14L, Red Cell Distribution Width 12.6, Segmented Neutrophils % 90H, Serratia marcescens (PCR) Negative, Sodium Level 128L, Staphylococcus aureus (PCR)(LAB) Negative, Staphylococcus species (PCR) Negative, Streptococcus pneumoniae (PCR) Negative, Streptococcus pyogenes (TEM-PCR) Negative, Streptococcus species (PCR ) Negative, Total Bilirubin 0.8, Total Protein 7.3, Anya/B-Vancomycin Resistance Genes Negative, White Blood Count 10.00, mecA-Methicillin Resistance Gene Negative 10/29/16 14:15: Urine Bacteria None seen, Urine Bilirubin Negative, Urine Blood Negative, Urine Clarity Clear, Urine Collection Type Clean catch, Urine Color Schuyler, Urine Glucose (UA) Negative, Urine Ketones TraceH, Urine Leukocyte Esterase Negative, Urine Microscopic RBC 0-2, Urine Mucus 3+H, Urine Nitrite Negative, Urine Protein 2+H, Urine Specific [place] 1.020, Urine Squamous Epithelial Cells 2-5, Urine Urobilinogen 0.2, Urine WBC None seen, Urine pH 7.0, Volume Urine Centrifuged 12 ml 10/29/16 15:05: Influenza Virus Type A Antibody Negative, Influenza Virus Type B Antibody Negative 10/29/16 15:12: Mycoplasma pneumoniae IgM Antibody 0.63 10/30/16 05:30: Absolute Band Neutrophils 0.1, Albumin 4.0, Anion Gap 13.9, Band Neutrophils % 2 , Basophils # (Auto) , Basophils # (Manual) 0.0, Basophils % (Manual) 0, Basophils (%) (Auto) , Blood Morphology Comment Normal, Blood Urea Nitrogen 13, Calcium Level 8.5L, Carbon Dioxide Level 24, Chloride Level 94L, Creatinine 0.73L, Differential Total Cells Counted 100, Eosinophils # 0.0, Eosinophils # ( Auto) , Eosinophils % (Manual) 0, Eosinophils (%) (Auto) , Estimat Glomerular Filtration Rate 130.1, Estimated GFR (Non- 107.5, Glucose Level 166H, Hematocrit 34.00L, Hemoglobin 12.0L, Lymphocytes # 0.8, Lymphocytes # ( Auto) , Lymphocytes % (Manual) 13L, Lymphocytes (%) (Auto) , Mean Corpuscular Hemoglobin 31.7, Mean Corpuscular Hemoglobin Concent 35.3, Mean Corpuscular Volume 90, Mean Platelet Volume 10.3H, Metamyelocytes % 0, Monocytes # 0.1, Monocytes # (Auto) , Monocytes % (Manual) 2L, Monocytes (%) (Auto) , Neutrophils # 5.1, Neutrophils # (Auto) , Neutrophils (%) (Auto) , Phosphorus Level 2.6, Platelet Count 101L, Polychromasia , Potassium Level 3.9, Red Blood Count 3.79L, Red Cell Distribution Width 13.0, Segmented Neutrophils % 83H, Sodium Level 128L, White Blood Count 6.16 10/30/16 08:56: Adenovirus (PCR) Negative, Bordetella parapertussis DNA (PCR) Negative, Chlamydophila pneumoniae (PCR) Negative, Coronavirus Type 229E (PCR) Negative, Coronavirus Type HKU1 (PCR) Negative, Coronavirus Type NL63 (PCR) Negative, Coronavirus Type OC43 (PCR) Negative, Enterovirus/Rhinovirus (PCR) Negative, Human Metapneumovirus (PCR) Negative, Influenza Type A (H1) (PCR) Negative, Influenza Virus Type B (PCR) Negative, Mycoplasma pneumoniae (PCR) Negative, Parainfluenza Type 1 (PCR) Negative, Parainfluenza Type 2 (PCR) Negative, Parainfluenza Type 3 (PCR) Negative, Parainfluenza Type 4 (PCR) Negative, Respiratory Syncytial Virus (PCR) Negative 10/30/16 10:00: Urine Random Creatinine 231H, Urine Random Sodium 88 10/30/16 10:50: Lab Scanned Report REFERENCE LABS 10/31/16 06:29: Albumin 4.1, Anion Gap 13.7, Basophils # (Auto) 0.0, Basophils (%) (Auto) 0, Blood Urea Nitrogen 10, Calcium Level 8.7L, Carbon Dioxide Level 24, Chloride Level 95L, Creatinine 0.61L, Eosinophils # (Auto) 0.1, Eosinophils (%) (Auto) 1 , Estimat Glomerular Filtration Rate 160.0, Estimated GFR (Non- 132.3, Glucose Level 151H, Hematocrit 34.80L, Hemoglobin 12.2L, Hemoglobin A1c 7.1H, Lymphocytes # (Auto) 0.5, Lymphocytes (%) (Auto) 10L, Magnesium Level 1.8 , Mean Corpuscular Hemoglobin 30.9, Mean Corpuscular Hemoglobin Concent 35.1, Mean Corpuscular Volume 88, Mean Platelet Volume 10.5H, Monocytes # (Auto) 0.6, Monocytes (%) (Auto) 11, Neutrophils # (Auto) 4.3, Neutrophils (%) (Auto) 77H, Phosphorus Level 2.8, Platelet Count 106L, Potassium Level 3.8, Red Blood Count 3.95L, Red Cell Distribution Width 12.6, Sodium Level 128L, White Blood Count 5.51 11/01/16 05:20: Albumin 3.9, Anion Gap 14.4, Basophils # (Auto) , Basophils (%) (Auto) , Blood Urea Nitrogen 10, Calcium Level 8.7L, Carbon Dioxide Level 23, Chloride Level 98 , Creatinine 0.61L, Eosinophils # (Auto) , Eosinophils (%) (Auto) , Estimat Glomerular Filtration Rate 160.0, Estimated GFR (Non- 132.3, Glucose Level 134H, Hematocrit 33.00L, Hemoglobin 11.8L, Lymphocytes # (Auto) , Lymphocytes (%) (Auto) , Magnesium Level 2.0, Mean Corpuscular Hemoglobin 31.7, Mean Corpuscular Hemoglobin Concent 35.8, Mean Corpuscular Volume 89, Mean Platelet Volume 10.9H, Monocytes # (Auto) , Monocytes (%) (Auto) , Neutrophils # (Auto) , Neutrophils (%) (Auto) , Phosphorus Level 3.7#, Platelet Count 109L, Potassium Level 3.6, Red Blood Count 3.72L, Red Cell Distribution Width 12.8, Sodium Level 132L, White Blood Count 3.82L, Absolute Band Neutrophils 0.1, Atypical Lymphocytes 3, Band Neutrophils % 2, Basophils # (Manual) 0.0, Basophils % (Manual) 0, Blood Morphology Comment Normal, Differential Total Cells Counted 100, Eosinophils # 0.2, Eosinophils % (Manual) 5H, Lymphocytes # 0.9, Lymphocytes % (Manual) 23, Metamyelocytes % 0, Monocytes # 0.3, Monocytes % (Manual) 11, Neutrophils # 2.1, Segmented Neutrophils % 56, Serum Osmolality 271L 11/02/16 05:30: Albumin 4.1, Anion Gap 15.1H, Basophils # (Auto) 0.1, Basophils (%) (Auto) 1, Blood Urea Nitrogen 9, Calcium Level 9.3, Carbon Dioxide Level 27, Chloride Level 99, Creatinine 0.67L, Eosinophils # (Auto) 0.2, Eosinophils (%) (Auto) 5H , Estimat Glomerular Filtration Rate 143.6, Estimated GFR (Non- 118.7, Glucose Level 148H, Hematocrit 35.10L, Hemoglobin 12.2L, Lymphocytes # ( Auto) 1.0, Lymphocytes (%) (Auto) 22, Magnesium Level 1.8, Mean Corpuscular Hemoglobin 30.8, Mean Corpuscular Hemoglobin Concent 34.8, Mean Corpuscular Volume 89, Mean Platelet Volume 10.2H, Monocytes # (Auto) 0.6, Monocytes (%) ( Auto) 13H, Neutrophils # (Auto) 2.6, Neutrophils (%) (Auto) 58, Phosphorus Level 4.2, Platelet Count 137L, Potassium Level 4.1, Red Blood Count 3.96L, Red Cell Distribution Width 12.8, Sodium Level 137, White Blood Count 4.42 11/05/16 10:00: Urine Osmolality [Pending] Discharge Provider's Instructions You were admitted for weakness. You were found to have a bacteria in your blood. This was sent for a culture but the culture has not grown out any final bacteria. You have significantly improved on antibiotics. You will be discharged with arrangements to continue antibiotics through November 16, 2016. You will need to come into the ED for this medication each day. You have also been started on lisinopril for your blood pressure being elevated. This may need to be adjusted by your PCP. Please continue current dose until instructed by your PCP to change the dose. You have a follow up appointment with Dr. Marks on November 09. Please continue your previously prescribed medication regimen. Discharge Medications New Medications: Lisinopril (Lisinopril) 10 Mg Tablet 30 MG PO DAILY #30 Ref 0 TAB Continued Medications: Amantadine HCl (Amantadine) 100 Mg Tablet 100 MG PO BID TAB Aspirin (Aspir 81) 81 Mg Tablet.dr 81 MG PO DAILY TAB Atorvastatin (Lipitor) 40 Mg Tablet 40 MG PO DAILY Ref 0 TAB B2/Vit A,C & E/Lut/Zeaxanth/Mn (Icaps Tablet) 1 Each Tablet.er 1 TAB PO DAILY TAB Carbidopa/Levodopa/Entacapone (Stalevo 150 Tablet) 1 Each Tablet 1 EACH PO QID TAB Carvedilol (Carvedilol) 25 Mg Tablet 25 MG PO BID WITH MEALS TAB Cholecalciferol (Vitamin D3) (Vitamin D3) 1,000 Unit Capsule 1000 UNIT PO DAILY Vitamin/Mineral Supplemnt Ref 0 CAP Cyanocobalamin (Vitamin B-12) (B-12) 1,000 Mcg Tablet 1000 MCG PO DAILY TAB Ferrous Sulfate (Iron) 325 Mg Tablet 325 MG PO DAILY TAB Metformin HCl (Metformin HCl) 500 Mg Tablet 500 MG PO TIDWM TAB Mu-Vits-Min Th/Lycopene/Lutein (Centrum Silver Tablet) 1 Each Tablet 1 TAB PO DAILY TAB [place] 3 Polyunsat Fatty Acids (Fish Oil) 1,000 Mg Cap 1000 MG PO DAILY CAP Pramipexole Di-HCl (Pramipexole Dihydrochloride) 0.5 Mg Tablet 1.5 MG PO TID TAB Primidone (Primidone) 250 Mg Tablet 250 MG PO DAILY TAB Vitamin B Complex (B Complex) 1 Each Tablet 1 TAB PO DAILY TAB Follow up Follow up Referrals: Family Practice - 11/09/16 @ [facility] with Elijah Marks MD Discharge Diagnosis SIRS Bacteremia/fungemia Dyspnea Suspected viral syndrome Copies to: End of Report . HORTENCIA BILLS MD Nov 05, 2016 16:17
[2016-11-05 16:34] VITALS: BP 164/96
--- NOTE | 2016-11-05 17:17 | OT Daily Note Inpatient (E) ---
OT Daily Treatment Service Date/Time 11/05/16, 17:11 Primary Diagnosis: (1) Fever ICD Code: R50.9 Treatment Diagnosis: (1) Weakness ICD Code: R53.1 Onset Date: 10/29/16 Start of Care Date: Oct 30, 2016 Precaution/Isolation: Standard Precautions Fall Level: High Risk 51 or greater Resuscitation Status: Full Code Pt reports he is feeling good. Strength not back to what it was yet, but otherwise feeling good. Oxygen Needed: Room air Current Function Assessment Cognition Attention: Intact Memory: Intact Safety/Judgement: Impaired Visual/Perceptual Skills Hearing: Intact Hand Dominance Hand Dominance: Right Endurance Activity Endurance: Fair Treatments Strengthening Exercise Upper Extremity Strength Exerc : Comment In sitting, pt participated in BUE strengthening exercises with use of green theraband to increase strength for transfers and ADLs. Completed 6 x 15 with proper technique during exercises. Able to complete with 2 rest breaks. Pt completed 10 chair push ups with noted SOB following task. Educated and discussed continuation of exercise at home to continue improving strengthening. Pt verbalized understanding. Education/Assessment Education Provided: Assistive equipment (Dressing equipment.), Excercise program Education Evalution: Demonstrate understanding Teaching Method: Demonstration, Handout, Practice/repetition, Verbal Readiness to Learn: Good Treatment Tolerance: Carlos Enrique trmnt w/o complaints Rehabilitation Potential: Good Pt participation in therapeutic exercises this date. POC Plan of Care Problems Identified: Activity Tolerance, ADLs, Balance, Lt UE Strength, Rt UE Strength, Safety Awareness Plan: Evaluation-OT, ADL/Self Care Management, Therapy Exercises, Therapy Activities, Pt/Family/Staff Education Frequency of OT: Five times weekly Duration of OT: Other (5 days ) Therapy to Include: ADL training, Balance with ADLs, Pt/family education, Therapeutic activities, UE strengthing Discharge Recommendations: Caregiver support Pt. Aware of Dx and Prognosis: Yes Pt. Aware of Risk & Benefit: Yes Goals: Discussed with patient, Discussed with family Short Term Goals STG Time Frame: 3 Days Will Perform Grooming: CGA Will Dress Lower Extremity: With Setup/SBA Will do Bathing: With Min Assistance Will do Toileting: CGA (GOAL MET.) STG #1 Pt will participate in 15 min of ther-ex with 4 or less rest breaks. GOAL MET. Labor Mediator Goals LTG Time Frame: 5 Days Will Dress Upper Extremity: Independently Will Dress Lower Extremity: Independently Will do Tub/Shower Transfer: Independently Will Bathe Self: With Setup/SBA Will do Toilet Transfers: Independently Will do Toilieting: Independently CPT/G Codes Time In: 14:35 Time Out: 14:56 Total Minutes: 21 (11/07 TE) CPT Codes: 25933 Exercise Ther (11/07 TE) CECILY PATEL OT Nov 05, 2016 17:17
[2016-11-06] MEDS ORDERED: lisINopril 10 MG (PRINIVIL) TABLET PO SCH (09:00)
--- NOTE | 2016-11-16 14:21 | OT Therapy Evaluation (E) ---
Discharge Summary Service Date/Time 11/16/16, 14:18 Primary Diagnosis: (1) Fever ICD Code: R50.9 Treatment Diagnosis: (1) Weakness ICD Code: R53.1 Onset Date: 10/29/16 Start of Care Date: Oct 30, 2016 Summary of Discharge Therapy Comments Pt able to demonstrate progress and increased independence with self care tasks. Demonstrated and provided education on adaptive equipment for lower body dressing. Pt and educated on long handled shoe horn, assistant teacher primary, flexible sock aid and elastic shoe laces. Pt educated on use of external cues during functional mobility to reduce risk of falls. Short Term Goals/Status Will Perform Grooming: CGA (NOT MET.) Will Dress Lower Extremity: With Setup/SBA (PROGRESS. Minimal assistance with use of a/e ) Will Do Bathing: With Min Assistance (NOT ASSESSED.) Will do Toileting: CGA (GOAL MET.) STG #1 Pt will participate in 15 min of ther-ex with 4 or less rest breaks. GOAL MET. Customs Compliance Manager Goals/ Status Will Dress Upper Extremity: Independently (NOT MET.) Will Dress Lower Extremity: Independently (NOT MET.) Will do Tub/Shower Transfer: Independently (NOT MET.) Will Bathe Self: With Setup/SBA (NOT MET.) Will do Toilet Transfers: Independently (NOT MET.) Will do Toilieting: Independently (NOT MET.) Discharge Recommendations: Home w/ Family Support CECILY PATEL OT Nov 16, 2016 14:21
== END 2016-11-05 16:38 | disposition home or self-care (01) | DRG 866 ==
LOC: ED 13:58 → MED/SURG 16:42
PROVIDERS: ADMIT Internal Medicine; ATTEND Internal Medicine
DX: B34.9 Viral infection, unspecified (principal); E87.1 Hypo-osmolality and hyponatremia; E86.0 Dehydration; G20 Parkinson's disease; E11.9 Type 2 diabetes mellitus without complications; R06.00 Dyspnea, unspecified; I10 Essential (primary) hypertension; F41.9 Anxiety disorder, unspecified; K59.00 Constipation, unspecified; Z91.81 History of falling; Z85.46 Personal history of malignant neoplasm of prostate; Z92.3 Personal history of irradiation
CPT/HCPCS: 36415; 71010; 71020; 80053; 80069; 81003; 81015; 82570; 83036; 83605; 83735; 83880; 83930; 83935; 84300; 85025; 86738; 87040; 87077; 87150; 87205; 87486; 87502; 87581; 87633; 87798; 94640; 94760; 96360; 99284; 99285

== ENCOUNTER → 2016-10-29 | Outpatient (CLI) | payer MEDICARE, OTHER ==
[~2016-10-29] MED LIST: AMAN100T PO; ASPI-586 PO; ATOR10TA PO; ATOR40TA2 PO; B2/V1TAB PO; CARV25TA30 PO; CHOL100092 PO; CYAN100088 PO; FERR325T36 PO; HYDR-3702 PO; LD5PT TOP; LSNP10T PO; METF500T4 PO; MULT-1034 PO; NAPR500T3 PO; OMG1KC PO; PRAM0.5T9 PO; PRED10TA PO; PRIM250T PO; VITA-189 PO; VITA1TAB78 PO; [UNRECOGNIZED DRUG - CODE] PO
== END ==
LOC: EMS 10:23
DX: Z53.20 Procedure and treatment not carried out because of patient's decision for unspecified reasons (principal)

== ENCOUNTER 2016-11-06 09:51 | Outpatient (RCR) | payer MEDICARE, OTHER ==
[~2016-11-06] VITALS: Ht 172.7 cm; Wt 117.9 kg
[~2016-11-06 09:51] MED LIST changes: +ATOR40TA2 PO; +CHOL100092 PO; +FERR325T36 PO; +LSNP10T PO
[2016-11-06] MEDS: NS FLUSH 3 ML PRN IV ×2 (10:18→10:55)
[2016-11-06] MEDS: ERTAPENEM 1 GM in SODIUM CHLORIDE 50 ML IV SCH (10:21)
[2016-11-07] MEDS: ERTAPENEM 1 GM in SODIUM CHLORIDE 50 ML IV SCH (09:59)
[2016-11-07] MEDS: NS FLUSH 10 ML PRN IV (10:00)
[2016-11-08] MEDS: NS FLUSH 10 ML PRN IV (09:54)
[2016-11-08] MEDS: ERTAPENEM 1 GM in SODIUM CHLORIDE 50 ML IV SCH (09:54)
--- NOTE | 2016-11-08 10:05 | NUR ---
IV site flushed by this nurse. Blood return noted, patient tolerated well.
[2016-11-09] MEDS: NS FLUSH 10 ML PRN IV (09:04)
[2016-11-09] MEDS: ERTAPENEM 1 GM in SODIUM CHLORIDE 50 ML IV SCH (09:04)
[2016-11-10] MEDS: ERTAPENEM 1 GM in SODIUM CHLORIDE 50 ML IV SCH (10:15)
[2016-11-11] MEDS: ERTAPENEM 1 GM in SODIUM CHLORIDE 50 ML IV SCH (10:07)
[2016-11-11] MEDS: NS FLUSH 3 ML PRN IV (10:07)
--- NOTE | 2016-11-11 10:24 | NUR ---
pt has HX OF PARKINSONS & UPPER EXTREMITY ESSENTIAL TREMORS
[2016-11-11] MEDS: NS FLUSH 10 ML PRN IV (10:38)
[2016-11-12] MEDS: NS FLUSH 3 ML PRN IV (09:54)
[2016-11-12] MEDS: NS FLUSH 10 ML PRN IV (09:54)
[2016-11-12] MEDS: ERTAPENEM 1 GM in SODIUM CHLORIDE 50 ML IV SCH (09:54)
[2016-11-13] MEDS: NS FLUSH 10 ML PRN IV (09:58)
[2016-11-13] MEDS: ERTAPENEM 1 GM in SODIUM CHLORIDE 50 ML IV SCH (09:58)
--- NOTE | 2016-11-13 10:35 | NUR ---
Saline lock flushes easily with NS after completion of IVAB infusion. Patient denies any discomfort with flush and denies discomfort during the IVAB infusion this morning. Slight light-pink discoloration noted at insertion site. No swelling or drainage. Site not tender to light palpation. Insertion site not warm to touch. TegraDerm over insertion site is dry, intact, and adhered appropriately. Patient verbalizes preferring to leave site intact for future use, if possible. Tubing clasp and clave padded with 2x2 where they contacted skin and site covered with Coban.
[2016-11-14] MEDS: ERTAPENEM 1 GM in SODIUM CHLORIDE 50 ML IV SCH (10:09)
[2016-11-14] MEDS: NS FLUSH 10 ML PRN IV (10:10)
[2016-11-14] MEDS: NS FLUSH 3 ML PRN IV (10:10)
[2016-11-15] MEDS: NS FLUSH 3 ML PRN IV (09:52)
[2016-11-15] MEDS: ERTAPENEM 1 GM in SODIUM CHLORIDE 50 ML IV SCH (09:53)
[2016-11-15] MEDS: NS FLUSH 10 ML PRN IV (09:54)
[2016-11-16] MEDS: NS FLUSH 3 ML PRN IV (09:47)
[2016-11-16] MEDS: ERTAPENEM 1 GM in SODIUM CHLORIDE 50 ML IV SCH (09:47)
[2016-11-16 09:54] VITALS: BP 140/75
== END 2017-02-04 | disposition home or self-care (01) ==
LOC: EUOP 09:51
PROVIDERS: ATTEND Family Medicine
DX: R78.81 Bacteremia (principal)
CPT/HCPCS: 96365; J1335; 36000